=== PATIENT | male | born 1945 | race Caucasian/White ===

== ENCOUNTER 2017-01-25 16:01 | Emergency (ER) | payer OTHER ==
[~2017-01-25] VITALS: Ht 175.2 cm; Wt 81.6 kg
[~2017-01-25 16:01] MED LIST: ACETAMINOPHEN325 M2 PO; AMOXICILLIN,AM875 MG PO; ANAPROX DS550 MG PO; ANUSOL-HC25 MG R; ASPIRIN81 M1 PO; ATENOLOL25 MG PO; ATOXIMETIN-B1 CAP PO; BENZTROPINE1 MG PO; BUPROPION100 MG PO; CARDOXIN0.25 MG PO; CIPRO500 MG PO; CITALOPRAM20 MG PO; COUMADIN2.5 M1 PO; CYMBALTA30 M1 PO; Coumadin3 MG PO; DEPAKOTE DR500 MG PO; DEPAKOTE500 M1 PO; DIGOXIN0.125 MG PO; DITROPAN XL5 MG PO; EPA/GLA1 SGL PO; FLAGYL500 MG PO; FLUNISOLID0.025 MG/A NS; Fioricet 325 MG1 TAB PO; GAS RELIEF 8080 MG PO; HYDROXYYZINE PA25 MG PO; IBUPROFEN 30 M800 MG PO; LASIX20 MG PO; LEVITRA20 MG PO; LOPRESSOR25 MG; LORAZEPAM0.5 MG PO; Lopressor25 MG PO; MEDROL DOSEPAK4 MG PO; METOPROLOL SR25 MG PO; NORCO 5-325 TA1 EACH PO; OMEPRAZOLE MAGN20 MG PO; OMEPRAZOLE20 MG PO; PERPHENAZINE4 M1 PO; PERPHENAZINE4 MG PO; PHENERGAN25 M1 PO; POTASSIUM CHLO10 ME5 PO; PRAVACHOL40 MG PO; PRAZOSIN; PROTONIX20 MG PO; QUESTRAN LIGHT4 GM PO; ROBAXIN750 MG PO; TOPROL XL25 MG PO; TRAMADOL HCL50 MG PO; TRAMADOL50 MG PO; TYLENOL325 M1 PO; VANCOMYCIN250 MG/2.5 PO; VENLAFAXINE150 MG PO; VICODIN 500 MG-1 TAB PO; VITAMIN C100 MG PO; VITAMIN D1000 IU PO; WARFARIN SOD5 MG PO; XANAX0.5 MG PO; [UNRECOGNIZED DRUG - OTHER]; [UNRECOGNIZED DRUG - REMARK]
[2017-01-25 16:43] LABS: BASO % 0.3 % (0.0-1.0); EOS # 0.2 10*3/uL (0.0-0.4); EOS % 1.2 % (1.0-4.0); HEMATOCRIT 40.8 % (42.0-52.0); HEMOGLOBIN 14.3 g/dl (14.0-18.0); IG # 0.1 10*3/uL (0.0-0.1); LYMPH # 3.7 10*3/uL (1.3-4.4); LYMPH % 24.3 % (27.0-41.0); MEAN CELL VOLUME 90.5 fl (80.0-94.0); MEAN CORPUSCULAR HGB 31.7 pg (27.0-31.0); MEAN PLATELET VOLUME 10.4 fl (9.6-12.3); MONO # 1.1 10*3/uL (0.1-1.0); MONO % 7.1 % (3.0-9.0); NEUT # 10.3 10*3/uL (2.3-7.9); NEUT % 66.6 % (47.0-73.0); PLATELET COUNT AUTOMATED 295 10*3/uL (130-400); RED BLOOD COUNT 4.51 10*6/uL (4.50-5.90); RED CELL DISTRI WIDTH 12.7 % (0-14.5); WHITE BLOOD COUNT 15.4 10*3/uL (4.8-10.8)
[2017-01-25 16:58] LABS: ALBUMIN 3.6 gm/dl (3.1-4.5); ALKALINE PHOSPHATASE 74 U/L (45-117); BILIRUBIN, TOTAL 0.4 mg/dl (0.2-1.0); BUN 18 mg/dl (7-24); CARBON DIOXIDE 27 mmol/L (21-32); CHLORIDE 107 mmol/L (98-107); EST GLOM FILT AFRICAN AMERICAN > 60 ml/min; GLUCOSE 75 mg/dL (65-99); POTASSIUM 4.5 mmol/L (3.5-5.1); SGOT/AST 18 IU/L (3-35); SGPT/ALT 28 U/L (12-78); SODIUM 141 mmol/L (136-145); TOTAL PROTEIN 7.6 gm/dL (6.4-8.2)
[2017-01-25] MEDS ORDERED: DIFI200T PO (18:15)
[2017-01-25] MEDS ORDERED: TAMSULOSIN HCL0.4 MG PO (18:16)
[2017-01-25] MEDS ORDERED: PAROXETINE HCL30 MG PO (18:16)
[2017-01-25] MEDS ORDERED: PANTOPRAZOLE SO40 MG PO (18:17)
[2017-01-25] MEDS ORDERED: VANCOMYCIN125 MG/2.5 PO (18:43)
== END 2017-01-25 18:42 | disposition home or self-care (01) ==
LOC: ED 16:01
PROVIDERS: Nurse Practitioner Family
DX: R19.7 Diarrhea, unspecified (principal); F17.200 Nicotine dependence, unspecified, uncomplicated; Z98.890 Other specified postprocedural states; Z79.899 Other long term (current) drug therapy; Z79.01 Long term (current) use of anticoagulants

== ENCOUNTER → 2017-03-07 | Outpatient (CLI) | payer OTHER ==
[~2017-03-07] MED LIST changes: +DIFI200T PO; +PANTOPRAZOLE SO40 MG PO; +PAROXETINE HCL30 MG PO; +TAMSULOSIN HCL0.4 MG PO; +VANCOMYCIN125 MG/2.5 PO
== END | disposition home or self-care (01) ==
LOC: CT 00:39
DX: K57.30 Diverticulosis of large intestine without perforation or abscess without bleeding (principal); D40.0 Neoplasm of uncertain behavior of prostate; I10 Essential (primary) hypertension; N20.0 Calculus of kidney; N32.3 Diverticulum of bladder; M47.896 Other spondylosis, lumbar region; I70.0 Atherosclerosis of aorta

== ENCOUNTER 2017-04-04 17:48 | Emergency (ER) | payer OTHER ==
[~2017-04-04] VITALS: Ht 170.1 cm; Wt 81.6 kg
[2017-04-04] MEDS ORDERED: PERCOCET 325 MG1 TA2 PO (20:11)
== END 2017-04-04 20:20 | disposition home or self-care (01) ==
LOC: ED 17:48
DX: G89.29 Other chronic pain (principal); M54.5 Low back pain; F17.200 Nicotine dependence, unspecified, uncomplicated; Z79.01 Long term (current) use of anticoagulants; Z79.899 Other long term (current) drug therapy

== ENCOUNTER 2017-04-19 15:46 | Emergency (ER) | payer OTHER ==
[~2017-04-19] VITALS: Ht 175.2 cm; Wt 80.7 kg
--- NOTE | ~2017-04-19 | EKG ---
[place], [place] ELECTROCARDIOGRAM REPORT NAME: ADI CHATMAN UNIT #: [id number] ROOM: DOCTOR: DEVI JUSTICE MD BIRTHDATE: [birth year] DOS: 04/19/2017 TIME: 1631 hours. FINDINGS: 1. Atrial fibrillation with a ventricular rate of 67 beats per minute. 2. Complete right bundle branch block. 3. An abnormal ECG. 4. No previous tracing is available for comparison. DEVI JUSTICE MD CM:EKGRPT:ELECTROCARDIOGRAM REPORT [id number] DEVI JUSTICE MD
[~2017-04-19 15:46] MED LIST changes: +PERCOCET 325 MG1 TA2 PO
[2017-04-19 17:06] LABS: BASO # 0.1 10*3/uL (0.0-0.1); BASO % 0.4 % (0.0-1.0); EOS # 0.1 10*3/uL (0.0-0.4); EOS % 0.7 % (1.0-4.0); HEMATOCRIT 35.2 % (42.0-52.0); HEMOGLOBIN 12.3 g/dl (14.0-18.0); IG # 0.1 10*3/uL (0.0-0.1); LYMPH # 2.8 10*3/uL (1.3-4.4); LYMPH % 19.3 % (27.0-41.0); MEAN CELL VOLUME 91.7 fl (80.0-94.0); MEAN CORPUSCULAR HGB CONC 34.9 g/dl (33.0-37.0); MEAN PLATELET VOLUME 10.6 fl (9.6-12.3); NEUT # 10.3 10*3/uL (2.3-7.9); NEUT % 72.2 % (47.0-73.0); PLATELET COUNT AUTOMATED 316 10*3/uL (130-400); RED BLOOD COUNT 3.84 10*6/uL (4.50-5.90); RED CELL DISTRI WIDTH 12.8 % (0-14.5); WHITE BLOOD COUNT 14.2 10*3/uL (4.8-10.8)
[2017-04-19 17:22] LABS: ALBUMIN 3.2 gm/dl (3.1-4.5); ALKALINE PHOSPHATASE 73 U/L (45-117); BILIRUBIN, TOTAL 0.4 mg/dl (0.2-1.0); BUN 21 mg/dl (7-24); CARBON DIOXIDE 24 mmol/L (21-32); CHLORIDE 106 mmol/L (98-107); CPK 47 U/L (39-308); EST GLOM FILT AFRICAN AMERICAN > 60 ml/min; GLUCOSE 95 mg/dL (65-99); LDH 146 U/L (87-241); POTASSIUM 4.1 mmol/L (3.5-5.1); SGOT/AST 15 IU/L (3-35); SGPT/ALT 25 U/L (12-78); SODIUM 138 mmol/L (136-145); TOTAL PROTEIN 7.3 gm/dL (6.4-8.2)
[2017-04-19 17:26] LABS: CKMB < 0.5 ng/ml (0.5-3.6); TROPONIN I < 0.015 ng/ml (<0.045)
[2017-04-19 19:23] LABS: BILIRUBIN NEGATIVE (NEGATIVE); BLOOD NEGATIVE (NEGATIVE); CLARITY CLEAR (CLEAR); COLOR YELLOW (YELLOW); GLUCOSE NEGATIVE (NEGATIVE); KETONE TRACE (NEGATIVE); LEUKO ESTERASE NEGATIVE (NEGATIVE); NITRITE NEGATIVE (NEGATIVE); PH 5.5 (5.0-9.0); PROTEIN NEGATIVE (NEGATIVE); UROBILINOGEN 0.2 E.U./dl (0.2-1.0)
[2017-04-19 19:30] LABS: BACTERIA 1+; EPITHELIAL CELLS 0-2; MUCOUS 2+; RBC 0-2 rbc/hpf (0-2); URINE REFLEX COMMENT NO (NO)
[2017-04-19] MEDS ORDERED: FLAGYL500 MG PO (20:16)
[2017-04-19] MEDS ORDERED: PERCOCET 325 MG1 TA2 PO (20:16)
[2017-04-19] MEDS ORDERED: CIPRO500 MG PO (20:16)
== END 2017-04-19 21:51 | disposition home or self-care (01) ==
LOC: ED 15:46
PROVIDERS: Physician Assistant
DX: K57.92 Diverticulitis of intestine, part unspecified, without perforation or abscess without bleeding (principal); F17.200 Nicotine dependence, unspecified, uncomplicated; Z79.01 Long term (current) use of anticoagulants

== ENCOUNTER 2017-05-02 16:01 | Inpatient (IN) | payer OTHER ==
[~2017-05-02] VITALS: Ht 170.1 cm; Wt 82.0 kg
[2017-05-02 16:18] VITALS: BP 123/69
[2017-05-02 16:19] VITALS: BP 105/69; BP 123/69
[2017-05-02 16:33] LABS: BASO # 0.1 10*3/uL (0.0-0.1); BASO % 0.6 % (0.0-1.0); EOS # 0.1 10*3/uL (0.0-0.4); EOS % 1.1 % (1.0-4.0); HEMATOCRIT 43.2 % (42.0-52.0); HEMOGLOBIN 14.8 g/dl (14.0-18.0); LYMPH # 2.6 10*3/uL (1.3-4.4); LYMPH % 23.6 % (27.0-41.0); MEAN CELL VOLUME 92.5 fl (80.0-94.0); MEAN CORPUSCULAR HGB 31.7 pg (27.0-31.0); MEAN CORPUSCULAR HGB CONC 34.3 g/dl (33.0-37.0); MEAN PLATELET VOLUME 10.3 fl (9.6-12.3); MONO # 0.7 10*3/uL (0.1-1.0); MONO % 6.2 % (3.0-9.0); NEUT # 7.4 10*3/uL (2.3-7.9); NEUT % 68.1 % (47.0-73.0); PLATELET COUNT AUTOMATED 357 10*3/uL (130-400); RED BLOOD COUNT 4.67 10*6/uL (4.50-5.90); RED CELL DISTRI WIDTH 12.8 % (0-14.5); WHITE BLOOD COUNT 10.8 10*3/uL (4.8-10.8)
[2017-05-02 16:44] LABS: INTERNATIONAL NORM RATIO 3.3 (2.0-3.5); PROTHROMBIN TIME 37.7 SECONDS (9.0-12.4)
[2017-05-02 16:49] LABS: ALBUMIN 3.4 gm/dl (3.1-4.5); ALKALINE PHOSPHATASE 64 U/L (45-117); BILIRUBIN, TOTAL 0.3 mg/dl (0.2-1.0); BUN 17 mg/dl (7-24); CARBON DIOXIDE 24 mmol/L (21-32); CHLORIDE 106 mmol/L (98-107); CKMB 0.7 ng/ml (0.5-3.6); CPK 63 U/L (39-308); EST GLOM FILT AFRICAN AMERICAN > 60 ml/min; GLUCOSE 90 mg/dL (65-99); MAGNESIUM 2.2 mg/dL (1.5-2.1); POTASSIUM 4.9 mmol/L (3.5-5.1); SGOT/AST 20 IU/L (3-35); SGPT/ALT 30 U/L (12-78); SODIUM 138 mmol/L (136-145)
[2017-05-02 16:50] LABS: C-REACTIVE PROTEIN < 0.29 MG/DL (0-0.3); TROPONIN I < 0.015 ng/ml (<0.045)
[2017-05-02 16:58] LABS: BILIRUBIN NEGATIVE (NEGATIVE); BLOOD TRACE-INTACT (NEGATIVE); CLARITY SL CLOUDY (CLEAR); COLOR YELLOW (YELLOW); GLUCOSE NEGATIVE (NEGATIVE); KETONE NEGATIVE (NEGATIVE); LEUKO ESTERASE NEGATIVE (NEGATIVE); NITRITE NEGATIVE (NEGATIVE); PROTEIN NEGATIVE (NEGATIVE); UROBILINOGEN 0.2 E.U./dl (0.2-1.0)
[2017-05-02 17:08] LABS: BACTERIA 1+; EPITHELIAL CELLS 0-2; MUCOUS TRACE; URINE REFLEX COMMENT NO (NO); WBC 0-2 wbc/hpf (0-5)
[2017-05-02 17:15] VITALS: BP 104/66
[2017-05-02 17:41] VITALS: BP 117/71
[2017-05-02 18:30] VITALS: BP 127/68
== END 2017-05-02 19:54 | disposition left against medical advice (07) | DRG 312 ==
LOC: ED 16:01 → EDHOLD 17:19 → 5E 17:51
PROVIDERS: Emergency Medicine
DX: I95.1 Orthostatic hypotension (principal); N17.0 Acute kidney failure with tubular necrosis; I48.2 Chronic atrial fibrillation; E86.0 Dehydration; F32.9 Major depressive disorder, single episode, unspecified; E83.41 Hypermagnesemia; I10 Essential (primary) hypertension; F43.10 Post-traumatic stress disorder, unspecified; E78.2 Mixed hyperlipidemia; G89.29 Other chronic pain; N40.0 Benign prostatic hyperplasia without lower urinary tract symptoms; H91.93 Unspecified hearing loss, bilateral; F17.210 Nicotine dependence, cigarettes, uncomplicated; K21.9 Gastro-esophageal reflux disease without esophagitis; Z87.81 Personal history of (healed) traumatic fracture; Z71.6 Tobacco abuse counseling; Z82.49 Family history of ischemic heart disease and other diseases of the circulatory system; Z80.8 Family history of malignant neoplasm of other organs or systems; Z79.01 Long term (current) use of anticoagulants; Z79.899 Other long term (current) drug therapy

== ENCOUNTER 2017-05-09 14:46 | Emergency (ER) | payer OTHER ==
[~2017-05-09] VITALS: Ht 170.1 cm; Wt 78.9 kg
[2017-05-09 16:02] LABS: BASO # 0.1 10*3/uL (0.0-0.1); BASO % 0.4 % (0.0-1.0); EOS # 0.1 10*3/uL (0.0-0.4); EOS % 0.9 % (1.0-4.0); HEMATOCRIT 39.9 % (42.0-52.0); HEMOGLOBIN 13.6 g/dl (14.0-18.0); LYMPH # 2.2 10*3/uL (1.3-4.4); LYMPH % 15.3 % (27.0-41.0); MEAN CELL VOLUME 92.8 fl (80.0-94.0); MEAN CORPUSCULAR HGB 31.6 pg (27.0-31.0); MEAN CORPUSCULAR HGB CONC 34.1 g/dl (33.0-37.0); MEAN PLATELET VOLUME 10.7 fl (9.6-12.3); MONO # 1.2 10*3/uL (0.1-1.0); MONO % 8.7 % (3.0-9.0); NEUT # 10.5 10*3/uL (2.3-7.9); NEUT % 74.2 % (47.0-73.0); PLATELET COUNT AUTOMATED 307 10*3/uL (130-400); WHITE BLOOD COUNT 14.2 10*3/uL (4.8-10.8)
[2017-05-09 16:17] LABS: ALBUMIN 3.3 gm/dl (3.1-4.5); ALKALINE PHOSPHATASE 65 U/L (45-117); BUN 19 mg/dl (7-24); CHLORIDE 105 mmol/L (98-107); CREATININE 1.34 mg/dL (0.70-1.30); LIPASE 333 U/L (73-393); POTASSIUM 3.4 mmol/L (3.5-5.1); SGOT/AST 15 IU/L (3-35); SGPT/ALT 25 U/L (12-78); SODIUM 140 mmol/L (136-145); TOTAL PROTEIN 7.8 gm/dL (6.4-8.2)
[2017-05-09] MEDS ORDERED: VANCOMYCIN HCL125 MG PO (16:53)
[2017-05-09] MEDS ORDERED: FLORASTOR250 MG PO (16:53)
== END 2017-05-09 18:10 | disposition home or self-care (01) ==
LOC: ED 14:46
PROVIDERS: Emergency Medicine
DX: A04.7 Enterocolitis due to Clostridium difficile (principal); I48.91 Unspecified atrial fibrillation; I10 Essential (primary) hypertension; K21.9 Gastro-esophageal reflux disease without esophagitis; E78.5 Hyperlipidemia, unspecified; Z87.442 Personal history of urinary calculi; Z79.02 Long term (current) use of antithrombotics/antiplatelets; Z79.899 Other long term (current) drug therapy; F17.200 Nicotine dependence, unspecified, uncomplicated

== ENCOUNTER 2017-05-10 20:39 | Emergency (ER) | payer OTHER ==
[~2017-05-10] VITALS: Ht 177.8 cm; Wt 99.8 kg
[~2017-05-10 20:39] MED LIST changes: +FLORASTOR250 MG PO; +VANCOMYCIN HCL125 MG PO
[2017-05-10 21:28] LABS: HEMATOCRIT 37.2 % (42.0-52.0); HEMOGLOBIN 12.7 g/dl (14.0-18.0); MEAN CELL VOLUME 91.6 fl (80.0-94.0); MEAN CORPUSCULAR HGB 31.3 pg (27.0-31.0); MEAN CORPUSCULAR HGB CONC 34.1 g/dl (33.0-37.0); MEAN PLATELET VOLUME 10.5 fl (9.6-12.3); PLATELET COUNT AUTOMATED 275 10*3/uL (130-400); RED BLOOD COUNT 4.06 10*6/uL (4.50-5.90); RED CELL DISTRI WIDTH 12.9 % (0-14.5); WHITE BLOOD COUNT 15.6 10*3/uL (4.8-10.8)
[2017-05-10 21:43] LABS: ALBUMIN 3.2 gm/dl (3.1-4.5); ALKALINE PHOSPHATASE 65 U/L (45-117); BUN 17 mg/dl (7-24); CHLORIDE 103 mmol/L (98-107); CREATININE 1.39 mg/dL (0.70-1.30); LIPASE 199 U/L (73-393); POTASSIUM 3.3 mmol/L (3.5-5.1); SGOT/AST 13 IU/L (3-35); SGPT/ALT 21 U/L (12-78); SODIUM 137 mmol/L (136-145); TOTAL PROTEIN 7.5 gm/dL (6.4-8.2)
[2017-05-10 22:03] LABS: PLATELET SUFFICIENCY NORMAL (NORMAL); TOTAL CELLS COUNTED 100 #CELLS
== END 2017-05-11 00:37 | disposition short-term general hospital (02) ==
LOC: ED 20:39
PROVIDERS: Physician Assistant
DX: A04.7 Enterocolitis due to Clostridium difficile (principal); D72.829 Elevated white blood cell count, unspecified; F17.200 Nicotine dependence, unspecified, uncomplicated; Z79.899 Other long term (current) drug therapy; Z79.02 Long term (current) use of antithrombotics/antiplatelets

== ENCOUNTER 2017-05-28 18:03 | Inpatient (IN) | payer OTHER ==
[~2017-05-28] VITALS: Ht 170.1 cm; Wt 78.6 kg
[2017-05-28 18:07] VITALS: BP 116/73
--- NOTE | 2017-05-28 18:15 | NUR ---
PT TAKES VANCOMYCIN PER HIS STMT FOR CURRENT C.DIFF INFECTION. ADMITS THAT HIS DIARRHEA HAS RESOLVED BUT THAT HE CONTINUES TO HAVE DIFFISE ABDOMEN PAIN, BACK PAIN, GENERAL WEAKNESS AND PERIODS OF DIZZINESS. HIS VITALS ARE IN NORMAL LIMITS. HE IS AFEBRILE. HIS ORAL MUCOSA IS MOIST BUT SKIN TURGOR SHOWS TENTING. DENIES ORTHOSTATIS BUT WILL PERFORM THIS EXAM SHORTLY.
[2017-05-28 18:55] LABS: BASO # 0.1 10*3/uL (0.0-0.1); BASO % 0.9 % (0.0-1.0); EOS # 0.2 10*3/uL (0.0-0.4); EOS % 2.4 % (1.0-4.0); HEMATOCRIT 39.4 % (42.0-52.0); HEMOGLOBIN 13.4 g/dl (14.0-18.0); LYMPH # 2.7 10*3/uL (1.3-4.4); LYMPH % 38.4 % (27.0-41.0); MEAN CELL VOLUME 92.1 fl (80.0-94.0); MEAN CORPUSCULAR HGB 31.3 pg (27.0-31.0); MEAN PLATELET VOLUME 10.9 fl (9.6-12.3); MONO # 0.7 10*3/uL (0.1-1.0); MONO % 10.1 % (3.0-9.0); NEUT # 3.3 10*3/uL (2.3-7.9); NEUT % 47.8 % (47.0-73.0); PLATELET COUNT AUTOMATED 379 10*3/uL (130-400); RED BLOOD COUNT 4.28 10*6/uL (4.50-5.90)
[2017-05-28 19:05] LABS: ACT PARTIAL THROMBO TIME 34.5 SECONDS (20.8-31.5); INTERNATIONAL NORM RATIO 2.6 (2.0-3.5)
--- NOTE | 2017-05-28 19:07 | NUR ---
REPORT FROM SAUL BERRIOS.. .PT RETURNS FROM RAD DEPT. NO DISTRESS NOTED.
[2017-05-28 19:11] LABS: ALBUMIN 3.4 gm/dl (3.1-4.5); ALKALINE PHOSPHATASE 73 U/L (45-117); BUN 24 mg/dl (7-24); CHLORIDE 104 mmol/L (98-107); CPK 36 U/L (39-308); CREATININE 1.37 mg/dL (0.70-1.30); LIPASE 274 U/L (73-393); MAGNESIUM 2.2 mg/dL (1.5-2.1); POTASSIUM 4.7 mmol/L (3.5-5.1); SGOT/AST 21 IU/L (3-35); SGPT/ALT 26 U/L (12-78); SODIUM 138 mmol/L (136-145); TOTAL PROTEIN 7.6 gm/dL (6.4-8.2)
[2017-05-28 19:16] LABS: CKMB < 0.5 ng/ml (0.5-3.6); TROPONIN I < 0.015 ng/ml (<0.045)
[2017-05-28 19:22] LABS: DIGOXIN 0.68 ng/ml (0.8-2.0)
[2017-05-28 19:30] VITALS: BP 130/73
[2017-05-28 19:37] LABS: BILIRUBIN NEGATIVE (NEGATIVE); BLOOD NEGATIVE (NEGATIVE); CLARITY CLEAR (CLEAR); COLOR YELLOW (YELLOW); GLUCOSE NEGATIVE (NEGATIVE); KETONE NEGATIVE (NEGATIVE); LEUKO ESTERASE NEGATIVE (NEGATIVE); NITRITE NEGATIVE (NEGATIVE); PH 5.5 (5.0-9.0); SPECIFIC GRAVITY 1.025 (1.005-1.030); UROBILINOGEN 0.2 E.U./dl (0.2-1.0)
[2017-05-28 20:04] LABS: BACTERIA 1+; MUCOUS 2+
[2017-05-28 20:17] VITALS: BP 128/70
--- NOTE | 2017-05-28 20:17 | NUR ---
PT MEDICATED PER EMAR FOR PAIN. NO DISTRESS NOTED, WILL CONT TO MONITOR.
[2017-05-28 21:24] VITALS: BP 135/73
--- NOTE | 2017-05-28 21:33 | NUR ---
REPORT FROM AMANDA WATTS RN
[2017-05-28 22:00] VITALS: BP 152/69
--- NOTE | 2017-05-28 22:00 | NUR ---
A 71, admitted to , under the services of GEMNII Martinez DO with a diagnosis of NEAR SYNCOPE. Chief complaint is WEAKNESS AND DIZZINESS. Patient arrived via stretcher from ER. Monitor applied. Initial assessment completed. Vital signs taken and recorded. GEMINI MARTINEZ DO notified of admission to the unit. Orders received. See assessment for past medical history, medications and allergies. Patient and/or family oriented to unit. [facility] visitation policy reviewed. Clothing/patient valuable form completed. CROW GLASS
--- NOTE | 2017-05-28 22:34 | NUR ---
patient unsure of all medication except digoxin and coumadin. no list available. pharmacy closed at this time and medications not in claims history
--- NOTE | 2017-05-28 23:06 | NUR ---
DR DIETRICH AWARE OF PATIENT'S MED REC NOT COMPLETE
--- NOTE | 2017-05-28 23:55 | NUR ---
PATIENT MEDICATED WITH PRN NORCO FOR C/O BACK PAIN AND HEADACHE
--- NOTE | 2017-05-29 02:14 | NUR ---
PATIENT RESTING WITH EYES CLOSED. MEDICATION SEEMS EFFECTIVE
[2017-05-29 03:32] LABS: BASO # 0.1 10*3/uL (0.0-0.1); BASO % 1.2 % (0.0-1.0); EOS # 0.2 10*3/uL (0.0-0.4); EOS % 3.1 % (1.0-4.0); HEMATOCRIT 38.6 % (42.0-52.0); HEMOGLOBIN 13.2 g/dl (14.0-18.0); LYMPH # 2.7 10*3/uL (1.3-4.4); LYMPH % 45.6 % (27.0-41.0); MEAN CELL VOLUME 94.4 fl (80.0-94.0); MEAN CORPUSCULAR HGB 32.3 pg (27.0-31.0); MEAN CORPUSCULAR HGB CONC 34.2 g/dl (33.0-37.0); MEAN PLATELET VOLUME 10.6 fl (9.6-12.3); MONO # 0.6 10*3/uL (0.1-1.0); MONO % 9.6 % (3.0-9.0); NEUT # 2.3 10*3/uL (2.3-7.9); PLATELET COUNT AUTOMATED 301 10*3/uL (130-400); RED BLOOD COUNT 4.09 10*6/uL (4.50-5.90); RED CELL DISTRI WIDTH 12.9 % (0-14.5); WHITE BLOOD COUNT 5.8 10*3/uL (4.8-10.8)
[2017-05-29 03:52] LABS: ALBUMIN 3.2 gm/dl (3.1-4.5); ALKALINE PHOSPHATASE 68 U/L (45-117); BUN 18 mg/dl (7-24); CHLORIDE 109 mmol/L (98-107); CHOLESTEROL 189 mg/dL (<200); CREATININE 1.01 mg/dL (0.70-1.30); HDL CHOLESTEROL 36 mg/dl (40-60); LDL CHOLESTEROL 106 mg/dL (9-159); MAGNESIUM 2.2 mg/dL (1.5-2.1); PHOSPHOROUS 2.6 mg/dL (2.5-4.9); SGOT/AST 21 IU/L (3-35); SGPT/ALT 24 U/L (12-78); SODIUM 142 mmol/L (136-145); TOTAL PROTEIN 7.1 gm/dL (6.4-8.2); TRIGLYCERIDES 235 mg/dl (<150); VLDL CHOLESTEROL 47 mg/dL (6-40)
[2017-05-29 04:00] VITALS: BP 160/87
[2017-05-29 04:02] LABS: ACT PARTIAL THROMBO TIME 33.6 SECONDS (20.8-31.5); INTERNATIONAL NORM RATIO 2.4 (2.0-3.5); VITAMIN D, 25-HYDROXY 48.2 ng/mL (30-100)
--- NOTE | 2017-05-29 04:05 | NUR ---
DR DIETRICH NOTIFIED OF PATIENT'S HR DROPPING INTO THE 30'S AND LONG PAUSES. STATES NOT TO WORRY ABOUT IT RIGHT NOW AND IF IT STAYS CONSISTANT THEN HE WILL CONSULT CARDIOLOGY. WILL CONTINUE TO MONITOR
[2017-05-29 08:00] VITALS: BP 145/75
--- NOTE | 2017-05-29 09:00 | NUR ---
Pot Tender in to talk to patient. Patient states lives at home with . There are few steps in the home. Physician: laurie [facility]: [facility] Home health services: none Patient's level of ADLs: MINIMAL ASSIST Patient has working utilities: all working DME: cane Follow-up physician's appointment after d/c: will be made by hospitalist nurse director upon discharge Does patient want to access PORTAL?: no Discharge plan discussed with patient, patient lives at home with , states he gets around with a cane, independent in adls, drives, patient states he will be going back home when able and denies any home needs, also discussed with him if he wanted va billed or his anthem, he wants va billed and states he is ok to transfer to [facility] if needed. WILLIAM ANN
--- NOTE | 2017-05-29 11:49 | NUR ---
case management received a call from Meredith social work case manager at [facility], she requested patient's information be faxed to her, patient's information faxed
[2017-05-29 12:00] VITALS: BP 123/58
--- NOTE | 2017-05-29 12:20 | NUR ---
PHYSICAL THERAPY APtient requests no PT this date until after special testing this date copleted. Will attempt PT later this date or at a later date. Thank you for this referral. Radha Vieira,PT
--- NOTE | 2017-05-29 13:32 | NUR ---
MULTIPLE ATTEMPTS TO CONTACT TO VERIFY MEDICATIONS, PT IS A [facility].
--- NOTE | 2017-05-29 13:50 | NUR ---
NORCO GIVEN FOR C/O NECK PAIN. WILL MONITOR
--- NOTE | 2017-05-29 15:16 | NUR ---
HERE TP VISIT, SHE DID NOT BRING MED LIST WITH HER, SHE WILL CALL WHEN SHE GETS HOME TO VERIFY MEDICATIONS
[2017-05-29 16:00] VITALS: BP 168/70
[2017-05-29] MEDS ORDERED: COUMADIN3 M1 PO (16:24)
--- NOTE | 2017-05-29 19:43 | NUR ---
PATIENT RESTING IN BED WITH NO NEEDS MADE. C/O HEADACHE. WILL MONITOR. BED IN LOWEST POSITION, CALL LIGHT IN REACH
[2017-05-29 20:00] VITALS: BP 143/77
--- NOTE | 2017-05-29 21:24 | NUR ---
DR DIETRICH NOTIFIED OF HEART RATE IN THE LOW 50'S. OK TO HOLD LOPRESSOR
--- NOTE | 2017-05-29 22:01 | NUR ---
PATIENT MEDICATED WITH PRN NORCO FOR HEAD AND NECK PAIN RATED 7/10 ON A 0/10 PAIN SCALE
[2017-05-30] VITALS: BP 159/80
--- NOTE | 2017-05-30 02:17 | NUR ---
PATIENT RESTING IN BED WITH NO S/S OF DISTRESS. BED IN LOWEST POSITOIN, CALL LIGHT IN REACH
[2017-05-30 06:48] LABS: BASO # 0.1 10*3/uL (0.0-0.1); EOS # 0.2 10*3/uL (0.0-0.4); EOS % 3.9 % (1.0-4.0); HEMATOCRIT 37.8 % (42.0-52.0); HEMOGLOBIN 13.1 g/dl (14.0-18.0); LYMPH # 2.7 10*3/uL (1.3-4.4); LYMPH % 45.2 % (27.0-41.0); MEAN CELL VOLUME 93.3 fl (80.0-94.0); MEAN CORPUSCULAR HGB 32.3 pg (27.0-31.0); MEAN CORPUSCULAR HGB CONC 34.7 g/dl (33.0-37.0); MEAN PLATELET VOLUME 11.1 fl (9.6-12.3); MONO # 0.6 10*3/uL (0.1-1.0); MONO % 10.3 % (3.0-9.0); NEUT # 2.3 10*3/uL (2.3-7.9); NEUT % 39.3 % (47.0-73.0); PLATELET COUNT AUTOMATED 297 10*3/uL (130-400); RED BLOOD COUNT 4.05 10*6/uL (4.50-5.90); RED CELL DISTRI WIDTH 12.9 % (0-14.5)
[2017-05-30 07:05] LABS: BUN 12 mg/dl (7-24); CHLORIDE 108 mmol/L (98-107); CREATININE 1.04 mg/dL (0.70-1.30); POTASSIUM 4.6 mmol/L (3.5-5.1); SODIUM 141 mmol/L (136-145)
[2017-05-30 07:06] LABS: INTERNATIONAL NORM RATIO 2.1 (2.0-3.5)
[2017-05-30 08:00] VITALS: BP 162/86
--- NOTE | 2017-05-30 09:24 | NUR ---
PRN PAIN MED GIVEN FOR 6/10 HEADACHE AND BACK ACHE.
--- NOTE | 2017-05-30 10:24 | NUR ---
PRN PAIN MED EFFECTIVE, PT REPORTS PAIN 3/10 HEADACHE AND BACK.
--- NOTE | 2017-05-30 10:42 | NUR ---
PHYSICAL THERAPY PAtient with significant headache, nurse aware. Unable to participate in PT at this time. Radha Vieira,PT
--- NOTE | 2017-05-30 10:51 | NUR ---
case management visits with patient, patient denies any home needs at this time
[2017-05-30 12:00] VITALS: BP 123/72
[2017-05-30] MEDS ORDERED: PERCOCET 7.5-31 EACH PO (12:49)
--- NOTE | 2017-05-30 13:29 | NUR ---
PHYSICAL THERAPY Patient being d/c. Radha Vieira,PT
--- NOTE | 2017-05-30 14:43 | NUR ---
Discharge instructions reviewed with patient/family. Patient receptive and verbalizes understanding. Follow-up care arranged. Written instructions given to patient/family. TORIE THAKKAR
== END 2017-05-30 14:43 | disposition home or self-care (01) | DRG 683 ==
LOC: ED 18:03 → EDHOLD 20:57 → 4E 20:57
PROVIDERS: Emergency Medicine; Family Medicine; Hospitalist; ADMIT Internal Medicine
DX: N17.0 Acute kidney failure with tubular necrosis (principal); D68.59 Other primary thrombophilia; A04.7 Enterocolitis due to Clostridium difficile; G91.2 (Idiopathic) normal pressure hydrocephalus; F33.9 Major depressive disorder, recurrent, unspecified; I95.1 Orthostatic hypotension; M51.9 Unspecified thoracic, thoracolumbar and lumbosacral intervertebral disc disorder; E78.5 Hyperlipidemia, unspecified; I48.0 Paroxysmal atrial fibrillation; F17.210 Nicotine dependence, cigarettes, uncomplicated; F43.10 Post-traumatic stress disorder, unspecified; K57.30 Diverticulosis of large intestine without perforation or abscess without bleeding; H91.8X9 Other specified hearing loss, unspecified ear; D64.9 Anemia, unspecified; G89.29 Other chronic pain; N32.81 Overactive bladder; K21.9 Gastro-esophageal reflux disease without esophagitis; I10 Essential (primary) hypertension; N40.0 Benign prostatic hyperplasia without lower urinary tract symptoms; Z82.49 Family history of ischemic heart disease and other diseases of the circulatory system; Z79.899 Other long term (current) drug therapy; Z79.01 Long term (current) use of anticoagulants

== ENCOUNTER → 2017-08-08 | Outpatient (CLI) | payer OTHER ==
[~2017-08-08] MED LIST changes: +COUMADIN3 M1 PO; +PERCOCET 7.5-31 EACH PO
== END | disposition home or self-care (01) ==
LOC: LAB 09:00
DX: S83.242D Other tear of medial meniscus, current injury, left knee, subsequent encounter (principal); M71.22 Synovial cyst of popliteal space [Baker], left knee; M94.262 Chondromalacia, left knee; X58.XXXD Exposure to other specified factors, subsequent encounter

== ENCOUNTER 2017-08-14 15:07 | Emergency (ER) | payer OTHER ==
[~2017-08-14] VITALS: Ht 170.1 cm; Wt 79.4 kg
[2017-08-14 16:07] LABS: BASO % 0.5 % (0.0-1.0); EOS # 0.1 10*3/uL (0.0-0.4); EOS % 1.4 % (1.0-4.0); HEMATOCRIT 39.7 % (42.0-52.0); HEMOGLOBIN 13.9 g/dl (14.0-18.0); LYMPH # 2.3 10*3/uL (1.3-4.4); LYMPH % 29.4 % (27.0-41.0); MEAN CELL VOLUME 89.2 fl (80.0-94.0); MEAN CORPUSCULAR HGB 31.2 pg (27.0-31.0); MEAN PLATELET VOLUME 10.3 fl (9.6-12.3); MONO # 0.7 10*3/uL (0.1-1.0); MONO % 8.8 % (3.0-9.0); NEUT # 4.6 10*3/uL (2.3-7.9); NEUT % 59.5 % (47.0-73.0); PLATELET COUNT AUTOMATED 298 10*3/uL (130-400); RED BLOOD COUNT 4.45 10*6/uL (4.50-5.90); RED CELL DISTRI WIDTH 12.9 % (0-14.5); WHITE BLOOD COUNT 7.7 10*3/uL (4.8-10.8)
[2017-08-14 16:14] LABS: INTERNATIONAL NORM RATIO 1.9 (2.0-3.5)
[2017-08-14 16:21] LABS: ALBUMIN 3.7 gm/dl (3.1-4.5); ALKALINE PHOSPHATASE 76 U/L (45-117); BUN 17 mg/dl (7-24); CHLORIDE 105 mmol/L (98-107); CREATININE 1.37 mg/dL (0.70-1.30); LIPASE 283 U/L (73-393); POTASSIUM 4.2 mmol/L (3.5-5.1); SGOT/AST 21 IU/L (3-35); SGPT/ALT 35 U/L (12-78); SODIUM 138 mmol/L (136-145); TOTAL PROTEIN 8.1 gm/dL (6.4-8.2)
[2017-08-14 16:57] LABS: BILIRUBIN NEGATIVE (NEGATIVE); BLOOD NEGATIVE (NEGATIVE); CLARITY CLEAR (CLEAR); COLOR YELLOW (YELLOW); GLUCOSE NEGATIVE (NEGATIVE); KETONE NEGATIVE (NEGATIVE); LEUKO ESTERASE NEGATIVE (NEGATIVE); NITRITE NEGATIVE (NEGATIVE); PH 5.5 (5.0-9.0); SPECIFIC GRAVITY 1.025 (1.005-1.030); UROBILINOGEN 0.2 E.U./dl (0.2-1.0)
[2017-08-14 17:05] LABS: WBC 0-2 wbc/hpf (0-5)
== END 2017-08-14 17:41 | disposition home or self-care (01) ==
LOC: ED 15:07
PROVIDERS: Physician Assistant
DX: R10.30 Lower abdominal pain, unspecified (principal); F17.210 Nicotine dependence, cigarettes, uncomplicated; R53.1 Weakness; R11.0 Nausea; Z79.899 Other long term (current) drug therapy; Z79.01 Long term (current) use of anticoagulants

== ENCOUNTER 2017-09-22 15:54 | Emergency (ER) | payer BC, OTHER ==
[~2017-09-22] VITALS: Ht 170.1 cm; Wt 79.4 kg
[2017-09-22 16:52] LABS: BASO # 0.1 10*3/uL (0.0-0.1); BASO % 0.6 % (0.0-1.0); EOS # 0.1 10*3/uL (0.0-0.4); EOS % 1.5 % (1.0-4.0); HEMATOCRIT 39.9 % (42.0-52.0); HEMOGLOBIN 14.2 g/dl (14.0-18.0); LYMPH # 2.6 10*3/uL (1.3-4.4); LYMPH % 29.1 % (27.0-41.0); MEAN CELL VOLUME 89.5 fl (80.0-94.0); MEAN CORPUSCULAR HGB 31.8 pg (27.0-31.0); MEAN CORPUSCULAR HGB CONC 35.6 g/dl (33.0-37.0); MEAN PLATELET VOLUME 10.9 fl (9.6-12.3); MONO # 0.7 10*3/uL (0.1-1.0); MONO % 7.5 % (3.0-9.0); NEUT # 5.4 10*3/uL (2.3-7.9); PLATELET COUNT AUTOMATED 295 10*3/uL (130-400); RED BLOOD COUNT 4.46 10*6/uL (4.50-5.90); RED CELL DISTRI WIDTH 12.6 % (0-14.5); WHITE BLOOD COUNT 8.8 10*3/uL (4.8-10.8)
[2017-09-22 17:02] LABS: ACT PARTIAL THROMBO TIME 32.2 SECONDS (20.8-31.5); INTERNATIONAL NORM RATIO 2.3 (2.0-3.5)
[2017-09-22 17:08] LABS: ALBUMIN 3.6 gm/dl (3.1-4.5); CREATININE 1.49 mg/dL (0.70-1.30); POTASSIUM 4.5 mmol/L (3.5-5.1); TOTAL PROTEIN 7.6 gm/dL (6.4-8.2)
[2017-09-22 18:09] LABS: BILIRUBIN NEGATIVE (NEGATIVE); BLOOD NEGATIVE (NEGATIVE); CLARITY CLEAR (CLEAR); COLOR YELLOW (YELLOW); GLUCOSE NEGATIVE (NEGATIVE); KETONE NEGATIVE (NEGATIVE); LEUKO ESTERASE NEGATIVE (NEGATIVE); NITRITE NEGATIVE (NEGATIVE); PH 5.5 (5.0-9.0); UROBILINOGEN 0.2 E.U./dl (0.2-1.0)
[2017-09-22 18:20] LABS: BACTERIA 1+; EPITHELIAL CELLS 0-2; RBC 0-2 rbc/hpf (0-2)
[2017-09-22 18:21] LABS: MUCOUS TRACE
[2017-09-22] MEDS ORDERED: ZOFRAN4 MG PO (18:28)
== END 2017-09-22 18:38 | disposition home or self-care (01) ==
LOC: ED 15:54
PROVIDERS: Nurse Practitioner Family
DX: R10.84 Generalized abdominal pain (principal); R11.0 Nausea; R03.0 Elevated blood-pressure reading, without diagnosis of hypertension; K59.00 Constipation, unspecified; Z79.899 Other long term (current) drug therapy; F17.200 Nicotine dependence, unspecified, uncomplicated

== ENCOUNTER 2017-11-11 15:59 | Emergency (ER) | payer MEDICARE, BC ==
[~2017-11-11] VITALS: Ht 170.1 cm; Wt 79.4 kg
[~2017-11-11 15:59] MED LIST changes: +ZOFRAN4 MG PO
[2017-11-11 16:37] LABS: BASO # 0.1 10*3/uL (0.0-0.1); BASO % 0.6 % (0.0-1.0); EOS # 0.1 10*3/uL (0.0-0.4); EOS % 1.5 % (1.0-4.0); HEMATOCRIT 39.8 % (42.0-52.0); HEMOGLOBIN 14.4 g/dl (14.0-18.0); MEAN CELL VOLUME 88.8 fl (80.0-94.0); MEAN CORPUSCULAR HGB 32.1 pg (27.0-31.0); MEAN CORPUSCULAR HGB CONC 36.2 g/dl (33.0-37.0); MEAN PLATELET VOLUME 10.6 fl (9.6-12.3); MONO # 0.7 10*3/uL (0.1-1.0); NEUT # 5.3 10*3/uL (2.3-7.9); NEUT % 57.6 % (47.0-73.0); PLATELET COUNT AUTOMATED 267 10*3/uL (130-400); RED BLOOD COUNT 4.48 10*6/uL (4.50-5.90); RED CELL DISTRI WIDTH 11.8 % (0-14.5); WHITE BLOOD COUNT 9.2 10*3/uL (4.8-10.8)
[2017-11-11 16:46] LABS: ACT PARTIAL THROMBO TIME 29.4 SECONDS (20.8-31.5); INTERNATIONAL NORM RATIO 1.6 (2.0-3.5)
[2017-11-11 16:55] LABS: ALBUMIN 3.2 gm/dl (3.1-4.5); ALKALINE PHOSPHATASE 84 U/L (45-117); BUN 16 mg/dl (7-24); CHLORIDE 106 mmol/L (98-107); CREATININE 1.14 mg/dL (0.70-1.30); LIPASE 225 U/L (73-393); POTASSIUM 4.1 mmol/L (3.5-5.1); SGOT/AST 29 IU/L (3-35); SODIUM 139 mmol/L (136-145); TOTAL PROTEIN 7.4 gm/dL (6.4-8.2)
[2017-11-11] MEDS ORDERED: SERTRALINE HYDR25 MG PO (16:56)
[2017-11-11] MEDS ORDERED: TAMSULOSIN HCL0.4 MG PO (16:56)
[2017-11-11] MEDS ORDERED: LYRICA50 M1 PO (16:57)
[2017-11-11] MEDS ORDERED: LATANOPROST2.5 ML OP (16:57)
[2017-11-11] MEDS ORDERED: TRAMADOL HCL50 MG PO (16:58)
[2017-11-11] MEDS ORDERED: BUSPAR5 MG PO (16:58)
[2017-11-11 16:59] LABS: TROPONIN I < 0.015 ng/ml (<0.045)
[2017-11-11] MEDS ORDERED: COMPLETE SENIO1 EACH PO (16:59)
[2017-11-11] MEDS ORDERED: TYLENOL325 M2 PO (16:59)
[2017-11-11] MEDS ORDERED: VITAMIN D33000 UNIT PO (17:00)
[2017-11-11 17:49] LABS: BILIRUBIN NEGATIVE (NEGATIVE); BLOOD NEGATIVE (NEGATIVE); CLARITY CLEAR (CLEAR); COLOR YELLOW (YELLOW); GLUCOSE NEGATIVE (NEGATIVE); KETONE NEGATIVE (NEGATIVE); LEUKO ESTERASE NEGATIVE (NEGATIVE); NITRITE NEGATIVE (NEGATIVE); PH 5.5 (5.0-9.0); UROBILINOGEN 0.2 E.U./dl (0.2-1.0)
[2017-11-11 17:58] LABS: RBC 0-2 rbc/hpf (0-2); WBC 0-2 wbc/hpf (0-5)
[2017-11-11 18:08] LABS: SGPT/ALT 46 U/L (12-78)
[2017-11-11] MEDS ORDERED: LEVAQUIN750 M1 PO (18:54)
== END 2017-11-11 18:58 | disposition home or self-care (01) ==
LOC: ED 15:59
PROVIDERS: Registered Nurse
DX: J18.1 Lobar pneumonia, unspecified organism (principal); F17.200 Nicotine dependence, unspecified, uncomplicated; Z79.899 Other long term (current) drug therapy

== ENCOUNTER 2017-11-27 11:11 | Inpatient (IN) | payer MEDICARE, BC ==
[~2017-11-27] VITALS: Ht 170.2 cm; Wt 81.8 kg
--- NOTE | ~2017-11-27 | WRIGHTHP ---
[place], [place] PATIENT HISTORY AND PHYSICAL EXAM NAME: ADI CHATMAN [facility] #: [id number] UNIT #: [id number] ROOM: 504 DOCTOR: TONI WHITE MD BIRTHDATE: [birth year] DOS: 11/27/2017 HISTORY OF PRESENT ILLNESS: The patient is a 71-year-old gentleman with a past medical history of: 1. Chronic atrial fibrillation. 2. Benign prostatic hypertrophy and urine retention. 3. Chronic pain. 4. Major depression, recurrent, mild. 5. Diverticulosis of the colon. 6. Benign essential hypertension. 7. Gastroesophageal reflux disease and esophagitis. 8. Hard of hearing 9. Mixed hyperlipidemia. 10. Normocytic anemia. 11. Posttraumatic stress disorder. 12. Nicotine smoke dependence. The patient presented to the office again for increasing shortness of breath, cough with sputum, persistent diarrhea and increasing weakness with difficulty in walking despite of outpatient treatment with antibiotics. Initially, the patient had started improving, but over the weekend, he started feeling even worse. The patient agreed to hospital admission and was sent over to [facility] for admission for outpatient treatment failure for pneumonia and now with acute diarrhea and dehydration, BUN and creatinine elevated to 24 and 1.3. Chest x-ray results are still pending. The patient has been started on hydration with normal saline and starting to feel better. The patient is very weak and has difficulty in ambulating and Physical Therapy has been consulted. No chest pains or fainting episodes. No palpitations. REVIEW OF SYSTEMS: LUNGS: The patient with increased shortness of breath, cough and sputum. GASTROINTESTINAL: The patient does have acute diarrhea for last 2-3 days. No vomiting. CARDIOVASCULAR SYSTEM: No chest pains or palpitations. FAMILY HISTORY: Noncontributory. SOCIAL HISTORY: Nicotine smoke dependence. Denies any alcohol or drug abuse. ALLERGIES: No known drug allergies. HOME MEDICATIONS: Digoxin, Paxil, Protonix, Flomax, Coumadin, tramadol. PHYSICAL EXAMINATION: GENERAL: Alert and oriented x 3, in no visible distress, very weak, generalized weakness. HEENT AND NECK: Extraocular movements are intact. Sclerae are anicteric. Oral mucosa is moist and clean. No obvious facial weakness. Neck is supple without any lymphadenopathy. No thyromegaly. No JVD. No carotid arterial bruits. LUNGS: The patient also has decreased breath sounds and bibasilar crackles on [place], [place] PATIENT HISTORY AND PHYSICAL EXAM NAME: ADI CHATMAN [facility] #: [id number] UNIT #: [id number] ROOM: [facility] DOCTOR: TONI WHITE MD BIRTHDATE: [birth year] lung auscultation. CARDIOVASCULAR SYSTEM: Heart rate is regular in rate and rhythm. S1 and S2 normally audible. No significant murmur or any other abnormal cardiac sounds. ABDOMEN: Soft, nontender. No obvious organomegaly. Bowel sounds are present. No obvious herniation. EXTREMITIES: Trace leg and pedal edema. CENTRAL NERVOUS SYSTEM: Alert and oriented x 3. Cranial nerves II-XII are intact. Speech is normal. The patient is able to move all extremities. Normal muscle strength. Deep tendon reflexes are equal on both sides. Plantars were downgoing. LABORATORY DATA: Chest x-ray results are still pending. Hemoglobin 12.3, normal platelets. BUN and creatinine elevated to 24 and 1.3. IMPRESSION AND PLAN: 1. Acute diarrhea, dehydration and hypovolemia. Blood pressure reduced to 103/60 and patient being hydrated with normal saline. The patient with acute diarrhea, may be related to Clostridium difficile colitis and also possibly viral gastroenteritis. Stool studies for Clostridium difficile are pending. 2. Left lower lobe pneumonia, increased shortness of breath and acute over chronic respiratory failure with failure to outpatient treatment with antibiotics. Now I am treating him with azithromycin and Rocephin and following him closely. Repeat chest x-ray results are pending. 3. 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 4. Chronic atrial fibrillation, with controlled heart rates. The patient is anticoagulated with Coumadin. INR was therapeutic. The patient is on digoxin to control his heart rate. 5. Benign prostatic hypertrophy and urinary retention, treated with Flomax, asymptomatic. 6. Gastroesophageal reflux disease and esophagitis, symptoms controlled with Protonix. 7. Major depression, recurrent, mild, treated with Paxil, which is being continued. 8. Acute ambulatory dysfunction with his diarrhea and increased weakness and infection. The patient started on physical therapy and we are taking fall precautions as well as bedsore precautions and using an air mattress. [place], [place] PATIENT HISTORY AND PHYSICAL EXAM NAME: ADI CHATMAN UNIT #: [id number] ROOM: [facility] DOCTOR: CINDY VAZQUEZ,TONI Whitney BIRTHDATE: [birth year] TONI WHITE MD CM:HISPHYS:PATIENT HISTORY AND PHYSICAL EXAMINATION 1103 1136 TONI WHITE MD 11/28/17 1134 interface
--- NOTE | ~2017-11-27 | WRIGHTHP ---
[place], [place] PATIENT HISTORY AND PHYSICAL EXAM NAME: ADI CHATMAN [facility] #: [id number] UNIT #: [id number] ROOM: 504 DOCTOR: TONI WHITE MD BIRTHDATE: [birth year] DOS: 11/27/2017 HISTORY OF PRESENT ILLNESS: The patient is a 71-year-old gentleman with a past medical history of: 1. COPD. 2. Recent pneumonia. 3. Recurrent falls and generalized weakness and adult failure to thrive. 4. Mixed hyperlipidemia. 5. Chronic back pains with degenerative joint disease. 6. Benign essential hypertension. 7. History of thyroid nodule. 8. Restless leg syndrome. 9. Hypothyroidism. 10. Generalized anxiety disorder and depression. 11. Coronary artery disease and coronary artery bypass grafts. DICTATION ENDS HERE TONI WHITE MD CM:HISPHYS:PATIENT HISTORY AND PHYSICAL EXAMINATION 1055 1108 TONI WHITE MD 11/29/17 0223 interface
--- NOTE | ~2017-11-27 | PR ---
[place], [place] PROGRESS NOTE [id number] UNIT #: [id number] ROOM: 504 DOCTOR: TONI WHITE MD BIRTHDATE: [birth year] DOS: 11/29/2017 SUBJECTIVE: The patient is breathing better. His diarrhea is somewhat improved. OBJECTIVE: VITAL SIGNS: Blood pressure 123/68, heart rate 71 beats per minute, breathing 18 times per minute, temperature of 98 degrees Fahrenheit. GENERAL: Generalized weakness. HEENT AND NECK: Exam within normal limits. CARDIOVASCULAR SYSTEM: Heart rate is regular in rate and rhythm. S1 and S2 normally audible. LUNGS: Clear to auscultation. ABDOMEN: Soft, nontender. No obvious organomegaly. Bowel sounds are present. EXTREMITIES: Without significant cyanosis or edema. IMPRESSION: 1. The patient with recent pneumonia in the posterior left lower lobe, not seen on the chest x-ray, is being treated with antibiotics. The patient's breathing is improving. 2. Acute diarrhea with nausea, vomiting, dehydration. Ambulatory function is improving with hydration with normal saline and the patient is able to tolerate diet better. 3. Ambulatory dysfunction. The patient was very weak and having difficulty in walking at home, is improving with physical therapy. 4. Chronic atrial fibrillation with controlled heart rates with digoxin. The patient anticoagulated with Coumadin with therapeutic INR at 2.2. 5. Benign essential hypertension. Blood pressures are being monitored and treated. 6. Coronary artery disease of tribe vessels without chest pains. 7. Hypothyroidism, treated and replaced with supplements. TONI WHITE MD CM:PNTRANS 1607 2218 TONI WHITE MD 11/29/17 2216 interface
--- NOTE | ~2017-11-27 | PR ---
[place], [place] PROGRESS NOTE [id number] UN[facility] #: [id number] ROOM: 504 DOCTOR: TONI WHITE MD BIRTHDATE: [birth year] DOS: 11/30/2017 SUBJECTIVE: The patient continues to feel better, but he is still somewhat short of breath and coughing up purulent sputum. OBJECTIVE: VITAL SIGNS: Blood pressure 130/75, heart rate 84 beats per minute, breathing 18 times per minute, temperature 98 degrees Fahrenheit. GENERAL APPEARANCE: The patient is alert and oriented x 3, in no visible distress. HEENT AND NECK: Exam within normal limits. CARDIOVASCULAR SYSTEM: Heart rate is regular in rate and rhythm. S1 and S2 normally audible. LUNGS: Somewhat decreased breath sounds and slight expiratory wheeze. ABDOMEN: Soft, nontender. No obvious organomegaly. Bowel sounds are present. EXTREMITIES: Without significant cyanosis or edema. IMPRESSION AND PLAN: 1. The patient with pneumonia, cough and purulent sputum. I will continue treatment with antibiotic and possibly he can go home tomorrow. 2. Chronic atrial fibrillation with controlled heart rates. The patient's INR is therapeutic at 2 with Coumadin, is being monitored. 3. Acute diarrhea, dehydration and hypovolemia, all improving. Clostridium difficile toxin has been negative. 4. Left lower lobe pneumonia, being treated as mentioned above. 5. Coronary artery disease of the [place] vessels, without chest pain. 6. Benign prostatic hypertrophy and urine retention, asymptomatic with Flomax. 7. Ambulatory dysfunction and weakness. The patient worked with Physical Therapy. TONI WHITE MD CM:PNTRANS 33 [phone] TONI WHITE MD 11/30/172154 interface
--- NOTE | ~2017-11-27 | DS ---
[place], [place] DISCHARGE SUMMARY NAME: ADI CHATMAN [facility] #: [id number] UNIT #: [id number] ROOM: 504 DOCTOR: TONI WHITE MD BIRTHDATE: [birth year] DOS: 12/01/2017 DISCHARGE DIAGNOSES: 1. The patient with left lower lobe pneumonia with cough and purulent sputum, improved with treatment with antibiotics. 2. Acute diarrhea, dehydration and hypovolemia, improved with hydration with normal saline. 3. Chronic atrial fibrillation. The patient is anticoagulated with Coumadin. 4. Coronary artery disease of [place] vessels, without chest pain. 5. Benign prostatic hypertrophy and urinary retention, asymptomatic with Flomax. 6. Ambulatory dysfunction and weakness with diarrhea and recent pneumonia, improved. The patient worked with physical therapy. 7. History of chronic obstructive pulmonary disease. 8. Mixed hyperlipidemia. 9. Chronic back pain and degenerative joint disease. 10. Benign essential hypertension. 11. History of thyroid nodule. 12. Restless leg syndrome. 13. Hypothyroidism. 14. Generalized anxiety disorder and depression. 15. History of coronary artery bypass graft. 16. Diverticulosis of the colon. 17. Nicotine smoke dependence. 18. Posttraumatic stress disorder. The patient was admitted with increasing shortness of breath and failure of outpatient treatment of his pneumonia. The patient was having difficulty with walking, diarrhea and was very weak and lives at home with his . The patient was admitted, started on antibiotics. Repeat chest x-ray did not show any pneumonia, which had actually showed up on CAT scan of the chest. The patient was treated with antibiotics, oxygen and breathing treatments and he has gradually improved. Generalized weakness and ambulatory dysfunction, improved with physical therapy. Nausea, vomiting, diarrhea and dehydration, hypovolemia, improved with hydration with normal saline. Coronary artery disease of [place] vessels, without chest pain. The patient has history of coronary artery bypass graft. Chronic atrial fibrillation with controlled heart rates. INR therapeutic at 2. The patient anticoagulated with Coumadin. Benign prostatic hypertrophy and urinary retention, asymptomatic with Flomax. GERD and esophagitis, treated and asymptomatic. The patient takes Protonix. Major depression, recurrent, mild, treated and controlled with Zoloft. [place], [place] DISCHARGE SUMMARY NAME: ADI CHATMAN [facility] #: [id number] UNIT #: [id number] ROOM: 504 DOCTOR: BETHANY WHITE MDZ J BIRTHDATE: [birth year] The patient is being discharged to home in stable condition and will be seen in my office on Sunday. LABORATORY DATA: Stool for C. diff normal. Diarrhea has resolved. INR therapeutic at 2. Normal serum electrolytes with hydration. Normal CBC except for hemoglobin of 11.8, which is chronic. DISCHARGE MANAGEMENT: Zoloft 50 mg a day, digoxin 125 mcg daily, Protonix 40 mg a day, Tylenol p.r.n., Flomax 0.4 mg a day, Coumadin 2 mg alternating with 2.5 mg daily, DuoNeb every 4 hours as needed, tramadol 50 mg t.i.d. p.r.n. for pain, especially back pains, Augmentin 875 mg twice a day for a week, then to be stopped. FOLLOWUP: At the office on Sunday. TONI WHITE MD CM:VENU 18 12 TONI WHITE MD 12/01/171909 interface
[~2017-11-27 11:11] MED LIST changes: +BUSPAR5 MG PO; +COMPLETE SENIO1 EACH PO; -COUMADIN3 M1 PO; -DIGOXIN0.125 MG PO; +LANOXIN0.125 MG PO; +LATANOPROST2.5 ML OP; +LEVAQUIN750 M1 PO; +LYRICA50 M1 PO; +PRAVACHOL80 M1 PO; +SERTRALINE HYDR25 MG PO; +TYLENOL325 M2 PO; +VITAMIN D33000 UNIT PO
[2017-11-27 11:30] VITALS: BP 109/83
[2017-11-27] MEDS ORDERED: HYDROXYZINE HCL25 MG PO (14:04)
[2017-11-27] MEDS ORDERED: LYRICA50 M1 PO (14:05)
[2017-11-27] MEDS ORDERED: PAXIL30 M2 PO (14:06)
[2017-11-27] MEDS ORDERED: TYLENOL325 M1 PO (14:11)
[2017-11-27] MEDS ORDERED: VITAMIN D33000 UNIT PO (14:46)
[2017-11-27] MEDS ORDERED: B COMPLEX1 EACH PO (14:47)
[2017-11-27] MEDS ORDERED: PROBIOTIC FORM1 EACH PO (14:48)
[2017-11-27 16:00] VITALS: BP 123/82
[2017-11-27 17:51] LABS: INTERNATIONAL NORM RATIO 2.2 (2.0-3.5)
[2017-11-27 20:00] VITALS: BP 129/73
[2017-11-28] VITALS: BP 120/78
[2017-11-28 06:35] LABS: BASO # 0.1 10*3/uL (0.0-0.1); BASO % 0.6 % (0.0-1.0); EOS # 0.2 10*3/uL (0.0-0.4); EOS % 2.4 % (1.0-4.0); HEMATOCRIT 35.5 % (42.0-52.0); HEMOGLOBIN 12.3 g/dl (14.0-18.0); LYMPH # 2.6 10*3/uL (1.3-4.4); LYMPH % 32.8 % (27.0-41.0); MEAN CELL VOLUME 92.2 fl (80.0-94.0); MEAN CORPUSCULAR HGB 31.9 pg (27.0-31.0); MEAN CORPUSCULAR HGB CONC 34.6 g/dl (33.0-37.0); MONO # 0.9 10*3/uL (0.1-1.0); MONO % 11.2 % (3.0-9.0); NEUT # 4.2 10*3/uL (2.3-7.9); NEUT % 52.6 % (47.0-73.0); PLATELET COUNT AUTOMATED 168 10*3/uL (130-400); RED BLOOD COUNT 3.85 10*6/uL (4.50-5.90); RED CELL DISTRI WIDTH 12.5 % (0-14.5); WHITE BLOOD COUNT 7.9 10*3/uL (4.8-10.8)
[2017-11-28 07:03] LABS: BUN 24 mg/dl (7-24); CHLORIDE 108 mmol/L (98-107); POTASSIUM 3.9 mmol/L (3.5-5.1); SODIUM 142 mmol/L (136-145)
[2017-11-28 08:00] VITALS: BP 103/59
[2017-11-28 12:00] VITALS: BP 108/58
[2017-11-28 16:00] VITALS: BP 121/74
[2017-11-28 21:00] VITALS: BP 128/67
[2017-11-29] VITALS: BP 117/59
[2017-11-29 06:23] LABS: BASO % 0.6 % (0.0-1.0); EOS # 0.2 10*3/uL (0.0-0.4); EOS % 3.4 % (1.0-4.0); HEMATOCRIT 33.9 % (42.0-52.0); HEMOGLOBIN 11.8 g/dl (14.0-18.0); LYMPH # 2.2 10*3/uL (1.3-4.4); LYMPH % 41.1 % (27.0-41.0); MEAN CELL VOLUME 91.4 fl (80.0-94.0); MEAN CORPUSCULAR HGB 31.8 pg (27.0-31.0); MEAN CORPUSCULAR HGB CONC 34.8 g/dl (33.0-37.0); MEAN PLATELET VOLUME 10.9 fl (9.6-12.3); MONO # 0.6 10*3/uL (0.1-1.0); MONO % 10.7 % (3.0-9.0); NEUT # 2.3 10*3/uL (2.3-7.9); NEUT % 43.8 % (47.0-73.0); PLATELET COUNT AUTOMATED 177 10*3/uL (130-400); RED BLOOD COUNT 3.71 10*6/uL (4.50-5.90); RED CELL DISTRI WIDTH 12.4 % (0-14.5); WHITE BLOOD COUNT 5.3 10*3/uL (4.8-10.8)
[2017-11-29 06:37] LABS: BUN 16 mg/dl (7-24); CHLORIDE 111 mmol/L (98-107); CREATININE 1.14 mg/dL (0.70-1.30); POTASSIUM 3.8 mmol/L (3.5-5.1); SODIUM 143 mmol/L (136-145)
[2017-11-29 08:00] VITALS: BP 133/60
[2017-11-29 12:00] VITALS: BP 123/68
[2017-11-29 16:00] VITALS: BP 142/70
[2017-11-30] VITALS: BP 142/47
[2017-11-30 06:38] LABS: BASO % 0.5 % (0.0-1.0); EOS # 0.2 10*3/uL (0.0-0.4); EOS % 2.8 % (1.0-4.0); HEMATOCRIT 34.3 % (42.0-52.0); HEMOGLOBIN 11.8 g/dl (14.0-18.0); LYMPH # 2.3 10*3/uL (1.3-4.4); LYMPH % 40.4 % (27.0-41.0); MEAN CELL VOLUME 90.7 fl (80.0-94.0); MEAN CORPUSCULAR HGB 31.2 pg (27.0-31.0); MEAN CORPUSCULAR HGB CONC 34.4 g/dl (33.0-37.0); MEAN PLATELET VOLUME 11.2 fl (9.6-12.3); MONO # 0.6 10*3/uL (0.1-1.0); NEUT # 2.6 10*3/uL (2.3-7.9); NEUT % 45.9 % (47.0-73.0); PLATELET COUNT AUTOMATED 201 10*3/uL (130-400); RED BLOOD COUNT 3.78 10*6/uL (4.50-5.90); RED CELL DISTRI WIDTH 12.2 % (0-14.5); WHITE BLOOD COUNT 5.6 10*3/uL (4.8-10.8)
[2017-11-30 06:41] LABS: BUN 10 mg/dl (7-24); CHLORIDE 108 mmol/L (98-107); CREATININE 0.97 mg/dL (0.70-1.30); POTASSIUM 3.8 mmol/L (3.5-5.1); SODIUM 142 mmol/L (136-145)
[2017-11-30 08:00] VITALS: BP 138/64
[2017-11-30 16:00] VITALS: BP 130/75
[2017-12-01] VITALS: BP 136/80
[2017-12-01 08:00] VITALS: BP 140/70
[2017-12-01 16:00] VITALS: BP 127/63
[2017-12-01] MEDS ORDERED: AUGMENTIN 875-875 MG PO (18:10)
== END 2017-12-01 19:10 | disposition home or self-care (01) | DRG 193 ==
LOC: 5E 11:11
PROVIDERS: Internal Medicine
DX: J18.1 Lobar pneumonia, unspecified organism (principal); J96.20 Acute and chronic respiratory failure, unspecified whether with hypoxia or hypercapnia; I48.2 Chronic atrial fibrillation; E86.0 Dehydration; F33.9 Major depressive disorder, recurrent, unspecified; E03.9 Hypothyroidism, unspecified; J44.0 Chronic obstructive pulmonary disease with (acute) lower respiratory infection; E78.2 Mixed hyperlipidemia; E86.1 Hypovolemia; F41.1 Generalized anxiety disorder; F43.10 Post-traumatic stress disorder, unspecified; G89.29 Other chronic pain; I25.10 Atherosclerotic heart disease of native coronary artery without angina pectoris; R19.7 Diarrhea, unspecified; R26.2 Difficulty in walking, not elsewhere classified; N40.1 Benign prostatic hyperplasia with lower urinary tract symptoms; K21.0 Gastro-esophageal reflux disease with esophagitis; I10 Essential (primary) hypertension; K57.90 Diverticulosis of intestine, part unspecified, without perforation or abscess without bleeding; R62.7 Adult failure to thrive; G25.81 Restless legs syndrome; M54.9 Dorsalgia, unspecified; M19.90 Unspecified osteoarthritis, unspecified site; F17.210 Nicotine dependence, cigarettes, uncomplicated; Z95.1 Presence of aortocoronary bypass graft; Z79.899 Other long term (current) drug therapy; Z79.01 Long term (current) use of anticoagulants; X58.XXXA Exposure to other specified factors, initial encounter; Y93.89 Activity, other specified; Y92.89 Other specified places as the place of occurrence of the external cause; Y99.8 Other external cause status; R33.8 Other retention of urine

== ENCOUNTER 2017-12-31 16:34 | Emergency (ER) | payer MEDICARE, BC ==
[~2017-12-31] VITALS: Ht 172.7 cm; Wt 81.6 kg
[~2017-12-31 16:34] MED LIST changes: +AUGMENTIN 875-875 MG PO; +B COMPLEX1 EACH PO; +HYDROXYZINE HCL25 MG PO; +PAXIL30 M2 PO; +PROBIOTIC FORM1 EACH PO
[2017-12-31 17:26] LABS: BILIRUBIN NEGATIVE (NEGATIVE); BLOOD NEGATIVE (NEGATIVE); CLARITY CLEAR (CLEAR); COLOR YELLOW (YELLOW); GLUCOSE NEGATIVE (NEGATIVE); KETONE NEGATIVE (NEGATIVE); LEUKO ESTERASE NEGATIVE (NEGATIVE); NITRITE NEGATIVE (NEGATIVE); PH 5.5 (5.0-9.0); UROBILINOGEN 0.2 E.U./dl (0.2-1.0)
[2017-12-31 17:39] LABS: WBC 0-2 wbc/hpf (0-5)
[2017-12-31 17:46] LABS: BASO # 0.1 10*3/uL (0.0-0.1); BASO % 0.7 % (0.0-1.0); EOS # 0.2 10*3/uL (0.0-0.4); EOS % 2.2 % (1.0-4.0); HEMATOCRIT 39.2 % (42.0-52.0); LYMPH % 36.3 % (27.0-41.0); MEAN CELL VOLUME 88.1 fl (80.0-94.0); MEAN CORPUSCULAR HGB 31.5 pg (27.0-31.0); MEAN CORPUSCULAR HGB CONC 35.7 g/dl (33.0-37.0); MEAN PLATELET VOLUME 10.9 fl (9.6-12.3); MONO # 0.8 10*3/uL (0.1-1.0); MONO % 9.9 % (3.0-9.0); NEUT # 4.1 10*3/uL (2.3-7.9); NEUT % 50.5 % (47.0-73.0); PLATELET COUNT AUTOMATED 249 10*3/uL (130-400); RED BLOOD COUNT 4.45 10*6/uL (4.50-5.90); RED CELL DISTRI WIDTH 12.6 % (0-14.5); WHITE BLOOD COUNT 8.1 10*3/uL (4.8-10.8)
[2017-12-31 17:55] LABS: ACT PARTIAL THROMBO TIME 27.7 SECONDS (20.8-31.5); INTERNATIONAL NORM RATIO 1.2 (2.0-3.5)
[2017-12-31 18:03] LABS: ALBUMIN 3.5 gm/dl (3.1-4.5); ALKALINE PHOSPHATASE 80 U/L (45-117); BUN 18 mg/dl (7-24); CHLORIDE 106 mmol/L (98-107); CREATININE 1.19 mg/dL (0.70-1.30); LIPASE 244 U/L (73-393); POTASSIUM 4.3 mmol/L (3.5-5.1); SGOT/AST 26 IU/L (3-35); SGPT/ALT 39 U/L (12-78); SODIUM 138 mmol/L (136-145); TOTAL PROTEIN 7.8 gm/dL (6.4-8.2); TROPONIN I < 0.015 ng/ml (<0.045)
[2017-12-31 18:14] LABS: DIGOXIN 0.71 ng/ml (0.8-2.0)
[2018-01-01] MEDS ORDERED: FISH OIL 1,2001 EACH PO (09:16)
[2018-01-01] MEDS ORDERED: MULTIPLE VITAM1 EAC1 PO (09:17)
[2018-01-01] MEDS ORDERED: METAMUCIL660 GM PO (09:18)
== END 2017-12-31 19:48 | disposition home or self-care (01) ==
LOC: ED 16:34
PROVIDERS: Emergency Medicine
DX: R10.32 Left lower quadrant pain (principal); F17.200 Nicotine dependence, unspecified, uncomplicated; I48.91 Unspecified atrial fibrillation; K21.9 Gastro-esophageal reflux disease without esophagitis; E78.5 Hyperlipidemia, unspecified; G89.29 Other chronic pain; I10 Essential (primary) hypertension; Z98.890 Other specified postprocedural states; Z79.899 Other long term (current) drug therapy; Z79.01 Long term (current) use of anticoagulants

== ENCOUNTER → 2018-01-04 | Day surgery (SDC) | payer MEDICARE, BC ==
[~2018-01-04] VITALS: Ht 170.1 cm; Wt 81.6 kg
[~2018-01-04] MED LIST changes: +FISH OIL 1,2001 EACH PO; +METAMUCIL660 GM PO; +MULTIPLE VITAM1 EAC1 PO
--- NOTE | ~2018-01-04 | O ---
[place], [place] OPERATIVE NOTE NAME: ADI CHATMAN UNIT #: [id number] ROOM: DOCTOR: BRANDEN LINDA MD BIRTHDATE: [birth year] DOS: 01/04/2018 GASTROENDOSCOPIC REPORT HISTORY OF PRESENT ILLNESS: A 72-year-old patient, who has presented with chief complaint of dyspepsia in addition to a sensation of change in bowel habit, difficulty with evacuation of stool, and old history of C. diff last year. ALLERGIES: No known medication. FAMILY HISTORY: Noncontributory. PAST SURGICAL HISTORY: Lower back surgery. PAST MEDICAL HISTORY: Depression, hyperlipidemia, and atrial fibrillation. SOCIAL HISTORY: Smoker, nonalcohol consumer. PROCEDURE: Today's procedure part of investigation is panendoscopy. PREMEDICATION: Versed and Diprivan. SCOPE: Olympus forward-viewing gastroscope Q10 video. REPORT: After putting the patient in left lateral position and application of lubricant to the scope, the scope was introduced. Thereafter, under direct visualization, I advanced through the length of esophagus without difficulty. Gastric pouch was entered. Evidence of gastritis was seen. Duodenal bulb, second and third part within normal limits. Antral biopsy obtained. The patient was gradually extubated and tolerated the procedure well. IMPRESSION: Gastritis, status post biopsy. PLAN AND DISCUSSION: We are going to keep the patient on omeprazole 20 mg daily. As far as change in bowel habit and irregularity of evacuation of bowel. We are going to check the colon. GASTROENDOSCOPIC REPORT INDICATIONS: The patient has presented with chief complaint of change in bowel habit, sensation of incomplete evacuation of stool. PROCEDURE: Today's procedure part of investigation is colonoscopy plus piecemeal polypectomy. PREMEDICATION: Versed and Diprivan. SCOPE: Olympus folding colonoscope 10L video. REPORT: After putting the patient in left lateral position and application of [place], [place] OPERATIVE NOTE NAME: ADI CHATMAN UNIT #: [id number] ROOM: DOCTOR: BRANDEN LINDA MD BIRTHDATE: [birth year] lubricant to the scope, the scope was introduced. Thereafter, under direct visualization, I advanced through the length of colon without difficulty. Diverticulosis and severe angulation of sigmoid colon were identified. Diverticulosis is severe in degree as well. Tortuosity of colon and significant sigmoid colon. However, the scope negotiated to base of cecum, ileocecal valve was defined. Appendix was photographed. Scope was gradually withdrawn from ascending, transverse, descending colon back to the sigmoid colon, a sessile polypoid lesion with piecemeal polypectomy removed and the patient extubated, tolerated procedure well. IMPRESSION: Severe tortuosity of the sigmoid colon, severe diverticulosis of sigmoid colon, sessile polyp sigmoid colon, status post piecemeal polypectomy. PLAN AND DISCUSSION: This patient's irregular bowel and incomplete evacuation could be explained based on anatomical deformities that he has at the sigmoid colon. He is advised with high fiber diet and assuring that bowel evacuation happens daily and clinical reassessment. Thank you very much indeed. BRANDEN LINDA MD CM:OPRECORD:OPERATIVE NOTE 1121 1327 TONI LINDA MD 01/04/18 1326 interface
[2018-01-04 10:12] VITALS: BP 115/74
[2018-01-04 11:44] VITALS: BP 104/65
[2018-01-04 11:48] VITALS: BP 115/74
[2018-01-04 11:50] VITALS: BP 113/70
[2018-01-04 12:00] VITALS: BP 121/74
== END | disposition home or self-care (01) ==
LOC: SDC 01-01 11:00
DX: K63.5 Polyp of colon (principal); K29.50 Unspecified chronic gastritis without bleeding; K57.30 Diverticulosis of large intestine without perforation or abscess without bleeding; K63.89 Other specified diseases of intestine; F32.9 Major depressive disorder, single episode, unspecified; E78.5 Hyperlipidemia, unspecified; I48.91 Unspecified atrial fibrillation; I10 Essential (primary) hypertension; K21.9 Gastro-esophageal reflux disease without esophagitis; F41.9 Anxiety disorder, unspecified; F43.10 Post-traumatic stress disorder, unspecified; F17.210 Nicotine dependence, cigarettes, uncomplicated; E78.00 Pure hypercholesterolemia, unspecified; R53.82 Chronic fatigue, unspecified; Z82.49 Family history of ischemic heart disease and other diseases of the circulatory system; Z80.9 Family history of malignant neoplasm, unspecified

== ENCOUNTER → 2018-02-23 | Outpatient (CLI) | payer MEDICARE, BC | END | disposition home or self-care (01) | LOC: CT 08:53 | DX: K76.0 Fatty (change of) liver, not elsewhere classified (principal); K57.30 Diverticulosis of large intestine without perforation or abscess without bleeding ==

== ENCOUNTER 2018-04-13 14:29 | Emergency (ER) | payer MEDICARE, BC ==
[~2018-04-13] VITALS: Ht 170.1 cm; Wt 81.6 kg
[2018-04-13 15:27] LABS: BILIRUBIN NEGATIVE (NEGATIVE); BLOOD NEGATIVE (NEGATIVE); CLARITY CLEAR (CLEAR); COLOR YELLOW (YELLOW); GLUCOSE NEGATIVE (NEGATIVE); KETONE NEGATIVE (NEGATIVE); LEUKO ESTERASE NEGATIVE (NEGATIVE); NITRITE NEGATIVE (NEGATIVE); UROBILINOGEN 0.2 E.U./dl (0.2-1.0)
[2018-04-13 15:40] LABS: BASO # 0.1 10*3/uL (0.0-0.1); BASO % 0.4 % (0.0-1.0); EOS # 0.1 10*3/uL (0.0-0.4); EOS % 0.6 % (1.0-4.0); HEMATOCRIT 39.6 % (42.0-52.0); HEMOGLOBIN 13.6 g/dl (14.0-18.0); LYMPH # 2.3 10*3/uL (1.3-4.4); LYMPH % 17.2 % (27.0-41.0); MEAN CELL VOLUME 90.2 fl (80.0-94.0); MEAN CORPUSCULAR HGB CONC 34.3 g/dl (33.0-37.0); MEAN PLATELET VOLUME 10.1 fl (9.6-12.3); MONO # 1.2 10*3/uL (0.1-1.0); MONO % 8.7 % (3.0-9.0); NEUT # 9.9 10*3/uL (2.3-7.9); NEUT % 72.7 % (47.0-73.0); PLATELET COUNT AUTOMATED 299 10*3/uL (130-400); RED BLOOD COUNT 4.39 10*6/uL (4.50-5.90); RED CELL DISTRI WIDTH 12.6 % (0-14.5); WHITE BLOOD COUNT 13.6 10*3/uL (4.8-10.8)
[2018-04-13 15:44] LABS: BACTERIA 1+; EPITHELIAL CELLS 0-2; MUCOUS TRACE; RBC 0-2 rbc/hpf (0-2); WBC 0-2 wbc/hpf (0-5)
[2018-04-13 15:55] LABS: ALBUMIN 3.4 gm/dl (3.1-4.5); ALKALINE PHOSPHATASE 83 U/L (45-117); BUN 19 mg/dl (7-24); CHLORIDE 103 mmol/L (98-107); CREATININE 1.41 mg/dL (0.70-1.30); POTASSIUM 4.6 mmol/L (3.5-5.1); SGOT/AST 16 IU/L (3-35); SGPT/ALT 24 U/L (12-78); SODIUM 138 mmol/L (136-145); TOTAL PROTEIN 7.7 gm/dL (6.4-8.2)
[2018-04-13] MEDS ORDERED: LEVOFLOXACIN500 MG PO (19:28)
[2018-04-13] MEDS ORDERED: FLAGYL500 MG PO (19:28)
[2018-04-22] MEDS ORDERED: CIPRO500 MG PO (17:44)
[2018-04-22] MEDS ORDERED: PYRIDIUM100 MG PO (17:44)
[2018-05-07] MEDS ORDERED: LIPITOR20 MG PO (19:27)
[2018-05-10] MEDS ORDERED: AUGMENTIN 875-875 MG PO (10:21)
[2018-05-10] MEDS ORDERED: FLAGYL500 MG PO (10:21)
== END 2018-04-13 19:50 | disposition home or self-care (01) ==
LOC: ED 14:29
PROVIDERS: Emergency Medicine
DX: K57.32 Diverticulitis of large intestine without perforation or abscess without bleeding (principal); R10.32 Left lower quadrant pain; F17.200 Nicotine dependence, unspecified, uncomplicated; I48.91 Unspecified atrial fibrillation; G89.29 Other chronic pain; I10 Essential (primary) hypertension; K21.9 Gastro-esophageal reflux disease without esophagitis; E78.5 Hyperlipidemia, unspecified; Z98.890 Other specified postprocedural states; Z79.01 Long term (current) use of anticoagulants; Z79.899 Other long term (current) drug therapy

== ENCOUNTER 2018-05-21 15:56 | Emergency (ER) | payer OTHER, MEDICARE, BC ==
[~2018-05-21] VITALS: Ht 170.1 cm; Wt 81.6 kg
--- NOTE | ~2018-05-21 | EKG ---
[place], [place] ELECTROCARDIOGRAM REPORT NAME: ADI CHATMAN UNIT #: [id number] ROOM: DOCTOR: LÓPEZ DRAFT REPORT BIRTHDATE: [birth year] [facility] Test Date: 2018-05-21 Test Time: 16:13:13 Pat Name: ADI CHATMAN Department: Room: Gender: Clean Energy Policy Analyst: SS RESP : 1945 Requested By: KILO IDETRICH Order Number: [id number] Reading MD: Damari Rand MD Measurements Intervals [place] Rate: 73 P: [place]: QRS: 45 QRSD: 130 T: 17 QT: 409 QTc: 451 Interpretive Statements Atrial fibrillation Right bundle branch block Compared to ECG 05/07/2018 11:05:11 No significant changes Electronically Signed On 05-21-2018 16:52:24 PDT by Damari Rand MD CM:EKGRPT:ELECTROCARDIOGRAM REPORT [id number] KILO DAWN DRAFT REPORT KILO DIETRICH M.D.
[~2018-05-21 15:56] MED LIST changes: +LEVOFLOXACIN500 MG PO; +LIPITOR20 MG PO; +PYRIDIUM100 MG PO
[2018-05-21 16:36] LABS: BASO # 0.1 10*3/uL (0.0-0.1); BASO % 0.6 % (0.0-1.0); EOS # 0.1 10*3/uL (0.0-0.4); EOS % 0.9 % (1.0-4.0); HEMATOCRIT 41.4 % (42.0-52.0); HEMOGLOBIN 14.2 g/dl (14.0-18.0); LYMPH # 2.3 10*3/uL (1.3-4.4); LYMPH % 24.8 % (27.0-41.0); MEAN CELL VOLUME 90.4 fl (80.0-94.0); MEAN CORPUSCULAR HGB CONC 34.3 g/dl (33.0-37.0); MEAN PLATELET VOLUME 10.9 fl (9.6-12.3); MONO # 0.7 10*3/uL (0.1-1.0); MONO % 7.1 % (3.0-9.0); NEUT # 6.2 10*3/uL (2.3-7.9); NEUT % 66.3 % (47.0-73.0); PLATELET COUNT AUTOMATED 311 10*3/uL (130-400); RED BLOOD COUNT 4.58 10*6/uL (4.50-5.90); RED CELL DISTRI WIDTH 13.1 % (0-14.5); WHITE BLOOD COUNT 9.3 10*3/uL (4.8-10.8)
[2018-05-21 16:45] LABS: ACT PARTIAL THROMBO TIME 30.1 SECONDS (20.8-31.5); INTERNATIONAL NORM RATIO 1.9 (2.0-3.5)
[2018-05-21 16:57] LABS: ALBUMIN 3.4 gm/dl (3.1-4.5); ALKALINE PHOSPHATASE 68 U/L (45-117); BUN 22 mg/dl (7-24); CHLORIDE 104 mmol/L (98-107); CREATININE 1.19 mg/dL (0.70-1.30); POTASSIUM 4.2 mmol/L (3.5-5.1); SGOT/AST 19 IU/L (3-35); SGPT/ALT 27 U/L (12-78); SODIUM 138 mmol/L (136-145); TOTAL PROTEIN 7.6 gm/dL (6.4-8.2)
[2018-05-21 16:58] LABS: TROPONIN I < 0.015 ng/ml (<0.045)
[2018-05-21 17:40] LABS: BILIRUBIN NEGATIVE (NEGATIVE); BLOOD NEGATIVE (NEGATIVE); CLARITY CLEAR (CLEAR); COLOR YELLOW (YELLOW); GLUCOSE NEGATIVE (NEGATIVE); KETONE NEGATIVE (NEGATIVE); LEUKO ESTERASE NEGATIVE (NEGATIVE); NITRITE NEGATIVE (NEGATIVE); UROBILINOGEN 0.2 E.U./dl (0.2-1.0)
[2018-05-21 18:02] LABS: BACTERIA TRACE
== END 2018-05-21 19:00 | disposition home or self-care (01) ==
LOC: ED 15:56
PROVIDERS: Emergency Medicine
DX: K29.70 Gastritis, unspecified, without bleeding (principal); F41.9 Anxiety disorder, unspecified; I48.91 Unspecified atrial fibrillation; G89.29 Other chronic pain; I10 Essential (primary) hypertension; K21.9 Gastro-esophageal reflux disease without esophagitis; E78.5 Hyperlipidemia, unspecified; F17.200 Nicotine dependence, unspecified, uncomplicated; Z98.890 Other specified postprocedural states; Z79.01 Long term (current) use of anticoagulants; Z79.899 Other long term (current) drug therapy

== ENCOUNTER → 2018-07-06 | Outpatient (CLI) | payer MEDICARE, BC | END | disposition home or self-care (01) | LOC: LAB 13:03 | DX: B27.90 Infectious mononucleosis, unspecified without complication (principal); R53.83 Other fatigue ==

== ENCOUNTER 2019-04-09 15:22 | Emergency (ER) | payer MEDICARE, BC ==
[~2019-04-09] VITALS: Ht 182.8 cm; Wt 88.5 kg
--- NOTE | ~2019-04-09 | EKG ---
[place], [place] ELECTROCARDIOGRAM REPORT NAME: ADI CHATMAN UNIT #: [id number] ROOM: DOCTOR: EPIPHANY DRAFT REPORT BIRTHDATE: [birth year] [facility] Test Date: 2019-04-09 Test Time: 15:52:07 Pat Name: ADI CHATMAN Department: Room: Gender: Complaint Specialist: Tameka Varner : 1945 Requested By: VAL العلي Order Number: [id number] Reading MD: Juancarlos Costello Measurements Intervals [place] Rate: 84 P: [place]: QRS: 21 QRSD: 127 T: -11 QT: 378 QTc: 447 Interpretive Statements Atrial fibrillation Right bundle branch block Compared to ECG 03/23/2019 17:23:35 Right bundle-branch block now present Electronically Signed On 04-10-2019 6:27:23 PDT by Juancarlos Costello CM:EKGRPT:ELECTROCARDIOGRAM REPORT 1552 0627 VAL PEREZ DRAFT REPORT VAL العلي DO
[~2019-04-09 15:22] MED LIST changes: +SEPTDS PO
[2019-04-09 16:16] LABS: BILIRUBIN NEGATIVE (NEGATIVE); BLOOD NEGATIVE (NEGATIVE); CLARITY CLEAR (CLEAR); COLOR YELLOW (YELLOW); GLUCOSE NEGATIVE (NEGATIVE); KETONE NEGATIVE (NEGATIVE); LEUKO ESTERASE NEGATIVE (NEGATIVE); NITRITE NEGATIVE (NEGATIVE); SPECIFIC GRAVITY 1.025 (1.005-1.030); UROBILINOGEN 0.2 E.U./dl (0.2-1.0)
[2019-04-09 16:18] LABS: BASO # 0.1 10*3/uL (0.0-0.1); BASO % 0.7 % (0.0-1.0); EOS # 0.2 10*3/uL (0.0-0.4); HEMATOCRIT 37.5 % (42.0-52.0); HEMOGLOBIN 12.8 g/dl (14.0-18.0); LYMPH # 1.8 10*3/uL (1.3-4.4); LYMPH % 20.3 % (27.0-41.0); MEAN CELL VOLUME 96.2 fl (80.0-94.0); MEAN CORPUSCULAR HGB 32.8 pg (27.0-31.0); MEAN CORPUSCULAR HGB CONC 34.1 g/dl (33.0-37.0); MEAN PLATELET VOLUME 10.7 fl (9.6-12.3); MONO # 0.9 10*3/uL (0.1-1.0); MONO % 10.3 % (3.0-9.0); NEUT % 66.1 % (47.0-73.0); PLATELET COUNT AUTOMATED 226 10*3/uL (130-400); RED CELL DISTRI WIDTH 13.3 % (0-14.5); WHITE BLOOD COUNT 9.1 10*3/uL (4.8-10.8)
[2019-04-09 16:33] LABS: ALBUMIN 3.2 gm/dl (3.1-4.5); ALKALINE PHOSPHATASE 87 U/L (45-117); BUN 21 mg/dl (7-24); CHLORIDE 106 mmol/L (98-107); CREATININE 1.41 mg/dL (0.70-1.30); INTERNATIONAL NORM RATIO 2.7 (2.0-3.5); LIPASE 142 U/L (73-393); POTASSIUM 4.1 mmol/L (3.5-5.1); SGOT/AST 22 IU/L (3-35); SGPT/ALT 30 U/L (12-78); SODIUM 138 mmol/L (136-145); TOTAL PROTEIN 7.6 gm/dL (6.4-8.2)
[2019-04-09 16:34] LABS: BACTERIA 1+; WBC 0-2 wbc/hpf (0-5)
[2019-04-09 16:44] LABS: DIGOXIN 0.85 ng/ml (0.8-2.0); TROPONIN I < 0.015 ng/ml (<0.045)
[2019-04-09] MEDS ORDERED: FLAGYL500 MG PO (19:10)
[2019-04-09] MEDS ORDERED: CIPRO500 MG PO (19:10)
[2019-04-09] MEDS ORDERED: PERCOCET 5-3251 EACH PO (19:10)
== END 2019-04-09 19:25 | disposition left against medical advice (07) ==
LOC: ED 15:22
PROVIDERS: Emergency Medicine
DX: K57.32 Diverticulitis of large intestine without perforation or abscess without bleeding (principal); R82.998 Other abnormal findings in urine; I48.91 Unspecified atrial fibrillation; E78.5 Hyperlipidemia, unspecified; K21.9 Gastro-esophageal reflux disease without esophagitis; I10 Essential (primary) hypertension; G89.29 Other chronic pain; F17.200 Nicotine dependence, unspecified, uncomplicated; Z79.899 Other long term (current) drug therapy

== ENCOUNTER 2019-06-19 15:19 | Emergency (ER) | payer MEDICARE, BC ==
[~2019-06-19] VITALS: Ht 170.1 cm; Wt 81.6 kg
[~2019-06-19 15:19] MED LIST changes: +PERCOCET 5-3251 EACH PO
[2019-06-19 16:08] LABS: BASO # 0.1 10*3/uL (0.0-0.1); BASO % 0.8 % (0.0-1.0); EOS # 0.2 10*3/uL (0.0-0.4); EOS % 2.2 % (1.0-4.0); HEMATOCRIT 40.8 % (42.0-52.0); HEMOGLOBIN 13.8 g/dl (14.0-18.0); LYMPH # 2.7 10*3/uL (1.3-4.4); LYMPH % 34.1 % (27.0-41.0); MEAN CELL VOLUME 93.6 fl (80.0-94.0); MEAN CORPUSCULAR HGB 31.7 pg (27.0-31.0); MEAN CORPUSCULAR HGB CONC 33.8 g/dl (33.0-37.0); MEAN PLATELET VOLUME 10.6 fl (9.6-12.3); MONO # 0.8 10*3/uL (0.1-1.0); MONO % 9.7 % (3.0-9.0); NEUT # 4.1 10*3/uL (2.3-7.9); NEUT % 52.8 % (47.0-73.0); PLATELET COUNT AUTOMATED 270 10*3/uL (130-400); RED BLOOD COUNT 4.36 10*6/uL (4.50-5.90); RED CELL DISTRI WIDTH 13.2 % (0-14.5); WHITE BLOOD COUNT 7.8 10*3/uL (4.8-10.8)
[2019-06-19 16:30] LABS: ALBUMIN 3.3 gm/dl (3.1-4.5); ALKALINE PHOSPHATASE 84 U/L (45-117); BUN 18 mg/dl (7-24); CHLORIDE 106 mmol/L (98-107); CREATININE 1.36 mg/dL (0.70-1.30); LIPASE 236 U/L (73-393); POTASSIUM 4.2 mmol/L (3.5-5.1); SGOT/AST 20 IU/L (3-35); SGPT/ALT 32 U/L (12-78); SODIUM 137 mmol/L (136-145); TOTAL PROTEIN 7.6 gm/dL (6.4-8.2)
[2019-06-19 17:27] LABS: BILIRUBIN NEGATIVE (NEGATIVE); BLOOD NEGATIVE (NEGATIVE); CLARITY CLEAR (CLEAR); COLOR YELLOW (YELLOW); GLUCOSE NEGATIVE (NEGATIVE); KETONE NEGATIVE (NEGATIVE); LEUKO ESTERASE NEGATIVE (NEGATIVE); NITRITE NEGATIVE (NEGATIVE); SPECIFIC GRAVITY 1.015 (1.005-1.030); UROBILINOGEN 0.2 E.U./dl (0.2-1.0)
[2019-06-19 17:34] LABS: EPITHELIAL CELLS 0-2
[2019-06-19] MEDS ORDERED: AMOXICILLIN500 M2 PO (17:52)
[2019-06-19] MEDS ORDERED: ZOFRAN4 MG PO (17:52)
[2019-06-19] MEDS ORDERED: ZYRTEC10 MG PO (17:52)
[2019-06-19] MEDS ORDERED: PREDNISONE20 M1 PO (17:52)
== END 2019-06-19 17:52 | disposition home or self-care (01) ==
LOC: ED 15:19
PROVIDERS: Nurse Practitioner Family
DX: J20.9 Acute bronchitis, unspecified (principal); R19.7 Diarrhea, unspecified; F17.200 Nicotine dependence, unspecified, uncomplicated; Z79.899 Other long term (current) drug therapy; Z79.01 Long term (current) use of anticoagulants

== ENCOUNTER 2020-03-05 13:55 | Inpatient (IN) | payer MEDICARE, BC ==
[~2020-03-05] VITALS: Ht 170.1 cm; Wt 86.2 kg
[~2020-03-05 13:55] MED LIST changes: +AMOXICILLIN500 M2 PO; +PREDNISONE20 M1 PO; +ZYRTEC10 MG PO
[2020-03-05 14:10] VITALS: BP 121/74
[2020-03-05 15:41] LABS: BASO % 0.3 % (0.0-1.0); EOS % 0.1 % (1.0-4.0); LYMPH # 0.7 10*3/uL (1.3-4.4); LYMPH % 10.4 % (27.0-41.0); MEAN CELL VOLUME 91.7 fl (80.0-94.0); MEAN CORPUSCULAR HGB CONC 33.9 g/dl (33.0-37.0); MEAN PLATELET VOLUME 11.5 fl (9.6-12.3); MONO # 0.8 10*3/uL (0.1-1.0); MONO % 11.4 % (3.0-9.0); NEUT # 5.2 10*3/uL (2.3-7.9); NEUT % 77.5 % (47.0-73.0); PLATELET COUNT AUTOMATED 177 10*3/uL (130-400); RED CELL DISTRI WIDTH 13.3 % (0-14.5); WHITE BLOOD COUNT 6.8 10*3/uL (4.8-10.8)
[2020-03-05 15:50] LABS: INTERNATIONAL NORM RATIO 1.2 (2.0-3.5)
[2020-03-05 15:59] LABS: ALBUMIN 3.3 gm/dl (3.1-4.5); CREATININE 1.54 mg/dL (0.70-1.30); POTASSIUM 4.5 mmol/L (3.5-5.1); TOTAL PROTEIN 8.3 gm/dL (6.4-8.2)
--- NOTE | 2020-03-05 16:27 | NUR ---
PT WAS PROVIDED URINAL TRIED TO PROVIDE URINE SAMPLE AND UNABLE AT THIS TIME.
--- NOTE | 2020-03-05 17:00 | NUR ---
PT IN CT AT THIS TIME.
[2020-03-05 17:42] VITALS: BP 123/79
--- NOTE | 2020-03-05 19:04 | NUR ---
WE DID TRY TO STRAIGHT CATH THE PT WITHOUT ANY SUCCESS.
--- NOTE | 2020-03-05 19:39 | NUR ---
PT AGAIN PROMPED TO URINATE. ASKED PT IF HE WOULD BE WILLING TO TRY STRAIGHT CATH AGAIN, HE REFUSES. PT PROVIDED URINAL AT BEDSIDE.
[2020-03-05 21:06] LABS: BILIRUBIN 1+ (NEGATIVE); BLOOD 3+ (NEGATIVE); CLARITY SL CLOUDY (CLEAR); COLOR YELLOW (YELLOW); GLUCOSE NEGATIVE (NEGATIVE); KETONE 1+ (NEGATIVE); LEUKO ESTERASE NEGATIVE (NEGATIVE); NITRITE NEGATIVE (NEGATIVE); SPECIFIC GRAVITY 1.025 (1.005-1.030); UROBILINOGEN 0.2 E.U./dl (0.2-1.0)
[2020-03-05 21:10] LABS: BACTERIA TRACE; RBC 41-50 rbc/hpf (0-2)
[2020-03-05 22:51] VITALS: BP 127/76
[2020-03-05 23:10] VITALS: BP 136/94
--- NOTE | 2020-03-05 23:10 | NUR ---
A 74, admitted to 5E, under the services of ELEAZAR Sifuentes MD with a diagnosis of CHRONIC RENAL FAILURE, PNEUMONIA, DEHYDRATION. Chief complaint is FLU LIKE SYMPTOMS. Patient arrived via ambulatory from ER. Monitor applied. Initial assessment completed. Vital signs taken and recorded. ELEAZAR SIFUENTES MD notified of admission to the unit. Orders received. See assessment for past medical history, medications and allergies. Patient and/or family oriented to unit. visitation policy reviewed. Clothing/patient valuable form completed. DEEPTI GARDNER
--- NOTE | 2020-03-05 23:44 | NUR ---
DR. MEDINA NOTIFIED OF ADMISSION TO FLOOR. UNABLE TO UPDATE MED REQ D/T CLAIM HISTORY DOES NOT MATCH ER MEDICATION LIST AND PATIENT DOES NOT KNOW HOME MEDS. WILL NEED UPDATED WITH PHARMACY IN THE MORNING.
[2020-03-06] VITALS: BP 136/94
--- NOTE | 2020-03-06 06:30 | NUR ---
PATIENT SWABBED AT THIS TIME FOR COVID AND SENT TO LAB. PATIENT CONFUSED THIS AM. INCONTINENT OF BOWEL X2 THROUGH THE NIGHT. PATIENT VERY SO[place]OGON AND DIAPHORETIC. TEMP AT THIS TIME 100.6. WILL CONTINUE TO MONITOR.
[2020-03-06 08:00] VITALS: BP 149/81
--- NOTE | 2020-03-06 08:00 | NUR ---
ASSUMED CARE FROM DEVORAH BERRIOS. PT LYING IN BED. PT BEING TRANSFERRED TO [facility] AT THIS TIME.
--- NOTE | 2020-03-06 09:00 | NUR ---
IN TO SEE PT. PT VOICES NO COMPLAINTS, BREAKFAST ORDERED. VSS. CALL LIGHT IN REACH
--- NOTE | 2020-03-06 10:00 | NUR ---
IN TO ASSIST PATIENT BED ALARM IS ALARMING. PT CHANGED AT THIS TIME, REPOSITIONED IN BED. CALL LIGHT IN REACH
--- NOTE | 2020-03-06 10:28 | NUR ---
PT EATING BREAKFAST AT THIS TIME. CALL LIGHT IN REACH
--- NOTE | 2020-03-06 10:41 | NUR ---
Feather Edger in to talk to patient. Patient states lives at HOME with . There are steps in the home. Physician: ADAM [facility] Patient's level of ADLs: INDEPENDENT Patient has working utilities: YES DME: NONE Follow-up physician's appointment after d/c: PREFERS TO MAKE OWN Does patient want to access PORTAL?: NO Discharge plan PT LIVES AT HOME WITH HIS AND IS INDEPENDENT IN HIS CARE. DENIES HE WILL HAVE ANY NEEDS ON DISCHARGE. PLAN IS TO RETURN HOME WHEN MEDICALLY STABLE. WILL CONTINUE TO FOLLOW. STATES WILL TAKE HIM HOME.. DONNY PEOPLES
--- NOTE | 2020-03-06 10:46 | NUR ---
DR. MEDINA CALLED PERTAINING TO TRANSFERRING PT TO DR. GAYTAN'S [facility]ARE. STATED THAT WAS PERFECTLY FINE.
--- NOTE | 2020-03-06 10:50 | NUR ---
ED REGISTRATION NOTIFIED OF TRANSFER OF CARE
[2020-03-06] MEDS ORDERED: COUMADIN2.5 M1 PO (12:15)
[2020-03-06] MEDS ORDERED: LIPITOR40 MG PO (12:16)
[2020-03-06] MEDS ORDERED: PRILOSEC20 M1 PO (12:17)
--- NOTE | 2020-03-06 12:17 | NUR ---
MED REC UPDATED THROUGH OVER THE PHONE.
--- NOTE | 2020-03-06 12:46 | NUR ---
PATIENT RESTING IN BED. EATING A LITTLE BIT OF LUNCH. STATES THAT HE IS NOT HUNGRY. DENIES DISTRESS. SEEMS TO BE MORE ORIENTED AT THIS TIME.
--- NOTE | 2020-03-06 14:00 | NUR ---
PATIENT SET OFF BEDALARM WALKING TO THE BATHROOM. PATIENT WAS INCONTINENT OF STOOL AND URINE. BED CHANGED. PATIENT CLEANED UP. TYLENOL GIVEN PER PATIENT REQUEST FOR A HEADACHE RATING AN 8/10.
[2020-03-06 16:00] VITALS: BP 134/90
--- NOTE | 2020-03-06 16:01 | NUR ---
MESSAGE LEFT FOR DR ZAZUETA TO CALL FOR CONSULT INFORMATION.
--- NOTE | 2020-03-06 16:30 | NUR ---
AWAKE, COOPERATIVE VOICES NO CONCERNS PT IN DROPLET ISOLATION, BUT NO HEPA FILTER IS IN ROOM, MAINTAINANCE CALLED NO SOB OR COUGH, IV TO LAV WITH FLUIDS AT 100 SKIN INTACT,NO EDEMA, BED ALARM ON PT WATCHED VIA "BABY MONITOR" DR ZAZUETA ON CONSULT AWAITING [facility] SWAB RESULTS
--- NOTE | 2020-03-06 17:01 | NUR ---
SPOKE WITH DR ZAZUETA CONCERNING CONSULT NO NEW ORDERS AT PRESENT
--- NOTE | 2020-03-06 17:56 | NUR ---
PATIENT INSTRUCTED ON INCENTIVE SPIROMETRY.
[2020-03-06 20:00] VITALS: BP 128/50
--- NOTE | 2020-03-06 20:01 | NUR ---
TOOK OVER CARE OF PT. PT LYING IN BED,SLEEPING. UPON ENTERING ROOM AND INTRODUCING SELF, PT AWAKENS. PT ALERT AND PLEASANT/COOPERATIVE, SLOW TO RESPOND. PT OFFERED FOOD ON BEDSIDE TABLE BUT REFUSES AT THIS TIME. IV FLUIDS INFUSING PER ORDERS. VITALS OBTAINED AND ASSESSMENT COMPLETE REVEALING NO NEW ABNORMALITIES, ALL WNL. RESPIRATIONS UNLABORED ON ROOM AIR. PT DENIES PAIN/SOB. PT REMINDED OF USING CALL LIGHT FOR ANYTHING THAT HE MAY NEED. BED ALARM IN TACT. CALL LIGHT IN REACH.
--- NOTE | 2020-03-06 20:14 | NUR ---
24 HR chart check completed.
--- NOTE | 2020-03-06 22:08 | NUR ---
PT RESTING IN BED AT THIS TIME. EYES OPEN, ALERT ORIENTED AND ANSWERING QUESTIONS APPROPRIATELY. IV FLUIDS INFUSING PER ORDERS. PT ASSISTED TO THE BATHROOM AND RETURNED BACK TO BED. BED ALARM IN TACT. ALL NEEDS MET AT THIS TIME. BED IN LOWEST POSITION. CALL LIGHT IN REACH.
[2020-03-07] VITALS: BP 114/52
--- NOTE | 2020-03-07 00:38 | NUR ---
PT RESTING IN BED. EASILY AROUSED. VITALS OBTAINED. ALL WNL. NO S/S OF DISTRESS. PATIENT DENIES PAIN/DENIES SHORTNESS OF BREATH. RESPIRATIONS EASY AND UNLABORED ON ROOM AIR. IV FLUIDS INFUSING PER ORDERS. IV SITE PATENT. BED ALARM IN TACT. ALL SAFETY MEASURES IN PLACE. CALL LIGHT IN REACH.
[2020-03-07 07:20] LABS: BASO % 0.5 % (0.0-1.0); EOS # 0.1 10*3/uL (0.0-0.4); EOS % 0.8 % (1.0-4.0); HEMATOCRIT 40.1 % (42.0-52.0); LYMPH # 1.4 10*3/uL (1.3-4.4); LYMPH % 23.1 % (27.0-41.0); MEAN CORPUSCULAR HGB 31.2 pg (27.0-31.0); MEAN CORPUSCULAR HGB CONC 33.9 g/dl (33.0-37.0); MEAN PLATELET VOLUME 11.3 fl (9.6-12.3); MONO # 0.8 10*3/uL (0.1-1.0); MONO % 13.1 % (3.0-9.0); NEUT # 3.7 10*3/uL (2.3-7.9); PLATELET COUNT AUTOMATED 165 10*3/uL (130-400); RED BLOOD COUNT 4.36 10*6/uL (4.50-5.90); RED CELL DISTRI WIDTH 13.6 % (0-14.5)
--- NOTE | 2020-03-07 07:30 | NUR ---
PATIENT RESTING IN BED. DENIES ANY MORE DIARRHEA AT THIS TIME. DENIES N/V. CO SOME BACK PAIN. ASSESSMENT COMPLETE. VSS. POX 97% ON ROOM AIR. RESPS EASY AND REGULAR. CALL LIGHT WITHIN REACH. WILL MONITOR.
--- NOTE | 2020-03-07 07:30 | NUR ---
PT RESTING IN BED. STATES HE HAS A LITTLE BIT OF A HEADACHE. RESPS EASY AND NON LABORED. NO S/S OF DISTRESS NOTED.VSS.WHITE BOARD UPDATED. POC DISCUSSED W PT. BED ALARM ON. CALL LIGHT WITHIN REACH. PT KLUTI KAAH, PERIODS OF BREIF CONFUSION. NO FURTHER DIARRHEA AT THIS TIME.
[2020-03-07 07:44] LABS: ALBUMIN 2.8 gm/dl (3.1-4.5); ALKALINE PHOSPHATASE 75 U/L (45-117); BUN 28 mg/dl (7-24); CHLORIDE 108 mmol/L (98-107); CREATININE 1.08 mg/dL (0.70-1.30); SGOT/AST 55 IU/L (3-35); SGPT/ALT 46 U/L (12-78); TOTAL PROTEIN 7.1 gm/dL (6.4-8.2)
[2020-03-07 07:58] LABS: SODIUM 138 mmol/L (136-145)
[2020-03-07 08:00] VITALS: BP 116/60
[2020-03-07 08:01] LABS: POTASSIUM 3.4 mmol/L (3.5-5.1)
--- NOTE | 2020-03-07 08:20 | NUR ---
PT C/O ACHING 4/10 HEADACHE. MEDICATED PER ORDER. WILL MONITOR FOR RELIEF. RESPS EASY AND NON LABORED. CALL LIGHT WITHIN REACH. BED ALARM ON
--- NOTE | 2020-03-07 09:12 | NUR ---
TYLENOL APPEARS EFFECTIVE. PT RESTING COMFORTABLY.
--- NOTE | 2020-03-07 10:25 | NUR ---
Shift chart check completed.
[2020-03-07 12:00] VITALS: BP 128/74
--- NOTE | 2020-03-07 13:10 | NUR ---
MESSAGE LEFT WITH MONICA DOWNING ANSWERING SERVICE REGARDING NEW CONSULT. SHE IS COVERING FOR DR ULRICH AT THIS TIME.
--- NOTE | 2020-03-07 14:00 | NUR ---
PT SITTING UP EATING LUNCH. VOICES NO CONCERNS. RESPS EASY AND NON LABORED. NO S/S OF DISTRESS NOTED. VSS. CALL LIGHT WITHIN REACH. BODY ALARM INTACT. PT STATES HE FEELS A LITTLE BETTER. NO FURTHER EPISODES OF DIARRHEA TODAY.
[2020-03-07] MEDS ORDERED: TRAMADOL HCL50 MG PO (15:39)
--- NOTE | 2020-03-07 15:51 | NUR ---
PER DR JUSTICE IT IS OKAY FOR PT TO HAVE HIS TRAMADOL HE TAKES AT HOME LONG ID IS OKAY WITH IT. SPOKE WITH MONICA JAY WHO STATES THAT IS FINE
[2020-03-07 16:00] VITALS: BP 137/67
--- NOTE | 2020-03-07 16:20 | NUR ---
PT C/O ACHING 6/10 BACK PAIN. MEDICATED PER ORDER WILL MONITOR FOR RELIEF. VOICES NO OTHER CONCERNS AT THIS TIME. RESPS EASY AND NON LABORED. NO S/S OF DISTRESS NOTED. VSS. CALL LIGHT WITHIN REACH. BED ALARM ON.
--- NOTE | 2020-03-07 17:19 | NUR ---
PT STATES BACK PAIN IS IMPROVED.
--- NOTE | 2020-03-07 18:00 | NUR ---
PT SITTING UP IN BED EATING DINNER. VOICES NO CONCERNS. RESPS EASY AND NON LABORED. NO S/S OF DISTRESS NOTED. CALL LIGHT WITHIN REACH. BED ALARM ON.
--- NOTE | 2020-03-07 19:30 | NUR ---
PATIENT RESTING IN BED. DENIES ANYMORE DIARRHEA TODAY. DENIES N/V. CO SOME BACK PAIN. ASSESSMENT COMPLETE. POX 97% ON ROOM AIR. RESPS EASY AND REGULAR. CALL LIGHT WITHIN REACH. WILL MONITOR.
[2020-03-07 20:00] VITALS: BP 130/73
--- NOTE | 2020-03-07 20:52 | NUR ---
PATIENT REQUESTING SOMETHING FOR BACK PAIN AT THIS TIME. MEDICATED WITH PRN ULTRAM AT THIS TIME. WILL ASSESS EFFECTIVENESS. CALL LIGHT WITHIN REACH.
--- NOTE | 2020-03-07 21:52 | NUR ---
PER PATIENT ULTRAM WAS EFFECTIVE FOR HIS BACK PAIN.
--- NOTE | 2020-03-07 23:14 | NUR ---
PATIENT REQUESTING SOMETHING TO HELP HIM SLEEP. NOTIFIED AND NEW ORDERS RECEIVED. MEDICATED WITH PRN RESTORIL AT THIS TIME. WILL ASSESS EFFECTIVENESS. CALL LIGHT WITHIN REACH.
[2020-03-08] VITALS: BP 122/71
--- NOTE | 2020-03-08 01:37 | NUR ---
PATIENT SLEEPING. RESPS EASY AND REGULAR. CALL LIGHT WITHIN REACH. WILL MONITOR.
--- NOTE | 2020-03-08 01:38 | NUR ---
24 HR chart check completed.
[2020-03-08 07:14] LABS: BASO # 0.1 10*3/uL (0.0-0.1); BASO % 1.4 % (0.0-1.0); EOS # 0.2 10*3/uL (0.0-0.4); EOS % 3.5 % (1.0-4.0); HEMATOCRIT 37.2 % (42.0-52.0); LYMPH # 2.2 10*3/uL (1.3-4.4); LYMPH % 42.5 % (27.0-41.0); MEAN CELL VOLUME 91.4 fl (80.0-94.0); MEAN CORPUSCULAR HGB CONC 33.9 g/dl (33.0-37.0); MONO # 0.7 10*3/uL (0.1-1.0); MONO % 13.3 % (3.0-9.0); NEUT % 38.9 % (47.0-73.0); PLATELET COUNT AUTOMATED 166 10*3/uL (130-400); RED BLOOD COUNT 4.07 10*6/uL (4.50-5.90); RED CELL DISTRI WIDTH 13.5 % (0-14.5); WHITE BLOOD COUNT 5.1 10*3/uL (4.8-10.8)
--- NOTE | 2020-03-08 07:23 | NUR ---
Shift chart check completed.
--- NOTE | 2020-03-08 07:30 | NUR ---
PT RESTING IN BED. VOICES NO CONCERNS AT THIS TIME. RESPS EASY AND NON LABORED. NO S/S OF DISTRESS NOTED. ROOM AIR. POC DISCUSSED W PT. VSS. WHITE BOARD UPADTED. CALL LIGHT WITHIN REACH. NO FURTHER EPISODES OF DIARRHEA. NO SOB NOTED
[2020-03-08 07:44] LABS: ALBUMIN 2.5 gm/dl (3.1-4.5); ALKALINE PHOSPHATASE 75 U/L (45-117); BUN 24 mg/dl (7-24); CHLORIDE 111 mmol/L (98-107); CREATININE 1.05 mg/dL (0.70-1.30); POTASSIUM 3.6 mmol/L (3.5-5.1); SGOT/AST 52 IU/L (3-35); SGPT/ALT 57 U/L (12-78); SODIUM 142 mmol/L (136-145); TOTAL PROTEIN 6.7 gm/dL (6.4-8.2)
[2020-03-08 08:00] VITALS: BP 119/70; BP 138/94
--- NOTE | 2020-03-08 09:00 | NUR ---
case management talkes with patient, he states he will return home when discharged and denies any home needs at this time, case management will follow
--- NOTE | 2020-03-08 10:00 | NUR ---
PT ASSISTED TO BATHROOM TO SHOWER PER HIS REQUEST.
--- NOTE | 2020-03-08 10:15 | NUR ---
DR ZAZUETA INTO SEE PT
--- NOTE | 2020-03-08 10:36 | NUR ---
SPOKE W DR ZAZUETA WHO STATES PT IS STABLE TO DISCHARGE FROM HIS STANDPOINT. PT UNDERSTANDS THAT HE WILL NEED TO SELF QUARENTINE AT HOME. ALSO PT HAS REDDENED AREA ON BACK R SHOULDER AND WANTS THE DOCTOR TO LOOK AT IT. PASSED THIS ALONG TO THE PRIMARY TEAM.
[2020-03-08 12:00] VITALS: BP 123/73
--- NOTE | 2020-03-08 13:00 | NUR ---
PTS BROUGHT IN CLOTHES FOR PT. CONFUSED TO WHY PT IS NOT DISCHARGED YET. EXPLAINED THAT THERE IS NO ORDER IN AT THIS TIME.
--- NOTE | 2020-03-08 13:40 | NUR ---
PT STATING I WANT MY CLOTHES I AM LEAVING
--- NOTE | 2020-03-08 14:00 | NUR ---
Patient signed out AMA. Patient encouraged to stay and advised of possible consequences of premature discharge. Physician KINNEAR and case supervisor notified. Patient instructed what to do regarding care post-departure from the hospital; emergency phone numbers provided. Patent was accompanied by . IV DISCONTINUED. PT GIVEN INSTRUCTION REGARDING COVID-19. VERBALIZED UNDERSTANDING. HISSOM,ANDRESSA
== END 2020-03-08 14:00 | disposition left against medical advice (07) | DRG 193 ==
LOC: ED 13:55 → EDHOLD 21:38 → 4E 21:38 → 5E 22:15 → 4E 03-06 07:59
PROVIDERS: Emergency Medicine; Internal Medicine; ADMIT Internal Medicine
DX: J18.9 Pneumonia, unspecified organism (principal); N17.0 Acute kidney failure with tubular necrosis; J44.0 Chronic obstructive pulmonary disease with (acute) lower respiratory infection; I48.20 Chronic atrial fibrillation, unspecified; I48.21 Permanent atrial fibrillation; E86.0 Dehydration; R19.7 Diarrhea, unspecified; E78.5 Hyperlipidemia, unspecified; F32.9 Major depressive disorder, single episode, unspecified; K21.9 Gastro-esophageal reflux disease without esophagitis; N40.0 Benign prostatic hyperplasia without lower urinary tract symptoms; G25.0 Essential tremor; K29.50 Unspecified chronic gastritis without bleeding; J20.9 Acute bronchitis, unspecified; Z53.29 Procedure and treatment not carried out because of patient's decision for other reasons; B34.9 Viral infection, unspecified; G47.33 Obstructive sleep apnea (adult) (pediatric); I12.9 Hypertensive chronic kidney disease with stage 1 through stage 4 chronic kidney disease, or unspecified chronic kidney disease; E03.9 Hypothyroidism, unspecified; F17.210 Nicotine dependence, cigarettes, uncomplicated; E78.00 Pure hypercholesterolemia, unspecified; D72.810 Lymphocytopenia; E87.6 Hypokalemia; E83.39 Other disorders of phosphorus metabolism; K57.90 Diverticulosis of intestine, part unspecified, without perforation or abscess without bleeding; F41.1 Generalized anxiety disorder; N18.3 Chronic kidney disease, stage 3 (moderate); G89.4 Chronic pain syndrome; I25.10 Atherosclerotic heart disease of native coronary artery without angina pectoris; J44.9 Chronic obstructive pulmonary disease, unspecified; Z03.818 Encounter for observation for suspected exposure to other biological agents ruled out; Z82.49 Family history of ischemic heart disease and other diseases of the circulatory system

== ENCOUNTER 2020-03-22 15:24 | Emergency (ER) | payer OTHER, MEDICARE, BC ==
[~2020-03-22] VITALS: Ht 170.1 cm; Wt 81.6 kg
[~2020-03-22 15:24] MED LIST changes: +LIPITOR40 MG PO; +PRILOSEC20 M1 PO
[2020-03-22] MEDS ORDERED: METHOCARBAMOL500 M1 PO (17:26)
[2020-03-22] MEDS ORDERED: PREDNISONE20 M1 PO (17:26)
== END 2020-03-22 17:35 | disposition home or self-care (01) ==
LOC: ED 15:24
DX: M54.12 Radiculopathy, cervical region (principal); I10 Essential (primary) hypertension; K21.9 Gastro-esophageal reflux disease without esophagitis; E78.00 Pure hypercholesterolemia, unspecified; I48.91 Unspecified atrial fibrillation; F17.200 Nicotine dependence, unspecified, uncomplicated; Z79.899 Other long term (current) drug therapy

== ENCOUNTER 2020-08-16 16:53 | Emergency (ER) | payer MEDICARE, BC ==
[~2020-08-16] VITALS: Ht 170.1 cm; Wt 86.2 kg
[~2020-08-16 16:53] MED LIST changes: +METHOCARBAMOL500 M1 PO
== END 2020-08-16 19:09 | disposition left against medical advice (07) ==
LOC: ED 16:53
DX: R05 Cough (principal); Z79.899 Other long term (current) drug therapy; Z79.01 Long term (current) use of anticoagulants; Z87.891 Personal history of nicotine dependence

== ENCOUNTER → 2020-08-25 | Outpatient (CLI) | payer MEDICARE, BC ==
[~2020-08-25] MED LIST changes: +ATORVASTATIN CA80 M1 PO; +BUSPIRONE HCL10 MG PO; +FEROSUL325 MG PO; +MIRALAX POWDER17 G1 PO; +VITAMIN C500 M4 PO
== END | disposition home or self-care (01) ==
LOC: COVID19 11:17
PROVIDERS: ATTEND Internal Medicine
DX: Z20.828 Contact with and (suspected) exposure to other viral communicable diseases (principal)

== ENCOUNTER 2020-09-05 06:59 | Emergency (ER) | payer MEDICARE, BC ==
[~2020-09-05] VITALS: Ht 170.1 cm; Wt 86.2 kg
[~2020-09-05 06:59] MED LIST changes: -ATORVASTATIN CA80 M1 PO; -BUSPIRONE HCL10 MG PO; -FEROSUL325 MG PO; -MIRALAX POWDER17 G1 PO; -VITAMIN C500 M4 PO
[2020-09-05] MEDS ORDERED: ATORVASTATIN CA80 M1 PO (07:06)
[2020-09-05] MEDS ORDERED: FEROSUL325 MG PO (07:07)
[2020-09-05] MEDS ORDERED: VITAMIN C500 M4 PO (07:08)
[2020-09-05] MEDS ORDERED: BUSPIRONE HCL10 MG PO (07:09)
[2020-09-05 08:19] LABS: BILIRUBIN Negative (Negative); BLOOD Negative (Negative); CLARITY Clear (Clear); COLOR Yellow (Yellow); GLUCOSE Negative (Negative); KETONE Trace (Negative); LEUKO ESTERASE Negative (Negative); NITRITE Negative (Negative); PH 5.5 (4.5-8.0); UROBILINOGEN 0.2 E.U./dl (0.0-1.0)
[2020-09-05 08:22] LABS: BASO % 0.5 % (0.0-1.0); EOS # 0.1 10*3/uL (0.0-0.4); EOS % 1.3 % (1.0-4.0); HEMATOCRIT 44.4 % (42.0-52.0); LYMPH # 2.3 10*3/uL (1.3-4.4); LYMPH % 26.5 % (27.0-41.0); MEAN CELL VOLUME 94.1 fl (80.0-94.0); MEAN CORPUSCULAR HGB 32.2 pg (27.0-31.0); MEAN CORPUSCULAR HGB CONC 34.2 g/dl (33.0-37.0); MONO # 0.7 10*3/uL (0.1-1.0); MONO % 7.4 % (3.0-9.0); NEUT # 5.6 10*3/uL (2.3-7.9); NEUT % 63.8 % (47.0-73.0); PLATELET COUNT AUTOMATED 266 10*3/uL (130-400); RED BLOOD COUNT 4.72 10*6/uL (4.50-5.90); RED CELL DISTRI WIDTH 12.8 % (0-14.5); WHITE BLOOD COUNT 8.8 10*3/uL (4.8-10.8)
[2020-09-05] MEDS ORDERED: ZOFRAN4 MG PO (08:24)
[2020-09-05 08:41] LABS: MUCOUS TRACE
[2020-09-05 08:55] LABS: ALKALINE PHOSPHATASE 87 U/L (45-117); BUN 16 mg/dl (7-24); CHLORIDE 106 mmol/L (98-107); CREATININE 1.31 mg/dL (0.70-1.30); POTASSIUM 4.1 mmol/L (3.5-5.1); SGOT/AST 32 IU/L (3-35); SGPT/ALT 38 U/L (12-78); SODIUM 139 mmol/L (136-145); TOTAL PROTEIN 8.3 gm/dL (6.4-8.2)
== END 2020-09-05 09:25 | disposition home or self-care (01) ==
LOC: ED 06:59
PROVIDERS: Emergency Medicine
DX: R11.0 Nausea (principal); I48.91 Unspecified atrial fibrillation; J44.9 Chronic obstructive pulmonary disease, unspecified; K21.9 Gastro-esophageal reflux disease without esophagitis; E78.5 Hyperlipidemia, unspecified; E03.9 Hypothyroidism, unspecified; F17.200 Nicotine dependence, unspecified, uncomplicated; Z79.899 Other long term (current) drug therapy

== ENCOUNTER → 2020-09-06 | Outpatient (CLI) | payer MEDICARE, BC ==
[~2020-09-06] MED LIST changes: +ATORVASTATIN CA80 M1 PO; +BUSPIRONE HCL10 MG PO; +FEROSUL325 MG PO; +MIRALAX POWDER17 G1 PO; +VITAMIN C500 M4 PO
== END | disposition home or self-care (01) ==
LOC: COVID19 12:50
PROVIDERS: ATTEND Nurse Practitioner Adult Health
DX: Z20.828 Contact with and (suspected) exposure to other viral communicable diseases (principal)

== ENCOUNTER 2020-09-27 05:01 | Emergency (ER) | payer MEDICARE, BC ==
[~2020-09-27] VITALS: Wt 83.5 kg
[~2020-09-27 05:01] MED LIST changes: -MIRALAX POWDER17 G1 PO
[2020-09-27] MEDS ORDERED: MIRALAX POWDER17 G1 PO (05:57)
== END 2020-09-27 06:14 | disposition home or self-care (01) ==
LOC: ED 05:01
DX: G89.29 Other chronic pain (principal); M54.9 Dorsalgia, unspecified; K59.00 Constipation, unspecified; I10 Essential (primary) hypertension; F32.9 Major depressive disorder, single episode, unspecified; K21.9 Gastro-esophageal reflux disease without esophagitis; F41.9 Anxiety disorder, unspecified; E78.00 Pure hypercholesterolemia, unspecified; I48.91 Unspecified atrial fibrillation; F17.200 Nicotine dependence, unspecified, uncomplicated; Z79.899 Other long term (current) drug therapy; Z79.01 Long term (current) use of anticoagulants; Z98.890 Other specified postprocedural states

== ENCOUNTER 2020-09-27 12:47 | Emergency (ER) | payer MEDICARE, BC ==
[~2020-09-27 12:47] MED LIST changes: +MIRALAX POWDER17 G1 PO
[2020-09-27 13:15] LABS: BASO % 0.2 % (0.0-1.0); EOS % 0.2 % (1.0-4.0); HEMATOCRIT 39.3 % (42.0-52.0); LYMPH # 0.6 10*3/uL (1.3-4.4); LYMPH % 4.9 % (27.0-41.0); MEAN CELL VOLUME 93.3 fl (80.0-94.0); MEAN CORPUSCULAR HGB 32.1 pg (27.0-31.0); MEAN CORPUSCULAR HGB CONC 34.4 g/dl (33.0-37.0); MEAN PLATELET VOLUME 10.2 fl (9.6-12.3); MONO # 0.7 10*3/uL (0.1-1.0); MONO % 5.1 % (3.0-9.0); NEUT # 11.3 10*3/uL (2.3-7.9); NEUT % 89.1 % (47.0-73.0); PLATELET COUNT AUTOMATED 273 10*3/uL (130-400); RED BLOOD COUNT 4.21 10*6/uL (4.50-5.90); RED CELL DISTRI WIDTH 12.5 % (0-14.5); WHITE BLOOD COUNT 12.7 10*3/uL (4.8-10.8)
[2020-09-27 13:23] LABS: ACT PARTIAL THROMBO TIME 31.4 SECONDS (20.0-32.1); INTERNATIONAL NORM RATIO 1.8 (2.0-3.5)
[2020-09-27 13:27] LABS: ALBUMIN 3.2 gm/dl (3.1-4.5); ALKALINE PHOSPHATASE 74 U/L (45-117); BUN 22 mg/dl (7-24); CHLORIDE 105 mmol/L (98-107); CREATININE 1.27 mg/dL (0.70-1.30); LIPASE 195 U/L (73-393); SGOT/AST 18 IU/L (3-35); SGPT/ALT 29 U/L (12-78); SODIUM 138 mmol/L (136-145); TOTAL PROTEIN 7.3 gm/dL (6.4-8.2)
[2020-09-27 13:28] LABS: TROPONIN I < 0.015 ng/ml (<0.045)
[2020-09-27 13:43] LABS: DIGOXIN 1.28 ng/ml (0.8-2.0)
== END 2020-09-27 14:25 | disposition left against medical advice (07) ==
LOC: ED 12:47
PROVIDERS: Emergency Medicine
DX: R68.83 Chills (without fever) (principal); I10 Essential (primary) hypertension; F32.9 Major depressive disorder, single episode, unspecified; K21.9 Gastro-esophageal reflux disease without esophagitis; F41.9 Anxiety disorder, unspecified; E78.00 Pure hypercholesterolemia, unspecified; I48.91 Unspecified atrial fibrillation; F17.200 Nicotine dependence, unspecified, uncomplicated; Z79.899 Other long term (current) drug therapy; Z79.01 Long term (current) use of anticoagulants; Z98.890 Other specified postprocedural states; Z53.29 Procedure and treatment not carried out because of patient's decision for other reasons

== ENCOUNTER 2020-10-22 15:00 | Emergency (ER) | payer MEDICARE, BC ==
[~2020-10-22] VITALS: Ht 170.1 cm; Wt 79.4 kg
== END 2020-10-22 15:37 | disposition left against medical advice (07) ==
LOC: ED 15:00
DX: G89.29 Other chronic pain (principal); M54.9 Dorsalgia, unspecified; Z53.21 Procedure and treatment not carried out due to patient leaving prior to being seen by health care provider

== ENCOUNTER 2020-11-24 15:17 | Emergency (ER) | payer OTHER ==
[~2020-11-24] VITALS: Ht 170.1 cm; Wt 74.8 kg
[2020-11-24 16:04] LABS: BASO # 0.1 10*3/uL (0.0-0.1); BASO % 0.6 % (0.0-1.0); EOS # 0.1 10*3/uL (0.0-0.4); EOS % 1.3 % (1.0-4.0); HEMATOCRIT 41.3 % (42.0-52.0); LYMPH # 2.2 10*3/uL (1.3-4.4); LYMPH % 26.9 % (27.0-41.0); MEAN CELL VOLUME 92.2 fl (80.0-94.0); MEAN CORPUSCULAR HGB 31.5 pg (27.0-31.0); MEAN CORPUSCULAR HGB CONC 34.1 g/dl (33.0-37.0); MEAN PLATELET VOLUME 10.3 fl (9.6-12.3); MONO # 0.7 10*3/uL (0.1-1.0); MONO % 8.7 % (3.0-9.0); NEUT # 5.1 10*3/uL (2.3-7.9); NEUT % 61.9 % (47.0-73.0); PLATELET COUNT AUTOMATED 386 10*3/uL (130-400); RED BLOOD COUNT 4.48 10*6/uL (4.50-5.90); RED CELL DISTRI WIDTH 12.6 % (0-14.5); WHITE BLOOD COUNT 8.3 10*3/uL (4.8-10.8)
[2020-11-24 16:18] LABS: ALKALINE PHOSPHATASE 101 U/L (45-117); BUN 17 mg/dl (7-24); CHLORIDE 107 mmol/L (98-107); CREATININE 1.08 mg/dL (0.70-1.30); LIPASE 134 U/L (73-393); SGOT/AST 11 IU/L (3-35); SGPT/ALT 19 U/L (12-78); SODIUM 139 mmol/L (136-145); TOTAL PROTEIN 7.2 gm/dL (6.4-8.2)
[2020-11-24] MEDS ORDERED: MEDROL DOSEPAK4 MG PO (18:11)
[2020-11-24] MEDS ORDERED: HYDROCODONE-AC1 EAC1 PO (18:11)
== END 2020-11-24 18:16 | disposition home or self-care (01) ==
LOC: ED 15:17
PROVIDERS: Physician Assistant
DX: M54.5 Low back pain (principal); G89.29 Other chronic pain; I10 Essential (primary) hypertension; F32.9 Major depressive disorder, single episode, unspecified; K21.9 Gastro-esophageal reflux disease without esophagitis; F41.9 Anxiety disorder, unspecified; E78.00 Pure hypercholesterolemia, unspecified; F17.200 Nicotine dependence, unspecified, uncomplicated; Z79.01 Long term (current) use of anticoagulants; Z79.899 Other long term (current) drug therapy; Z98.890 Other specified postprocedural states

== ENCOUNTER 2021-01-16 14:17 | Emergency (ER) | payer MEDICARE, BC ==
[~2021-01-16] VITALS: Wt 72.6 kg
[~2021-01-16 14:17] MED LIST changes: +HYDROCODONE-AC1 EAC1 PO
== END 2021-01-16 14:29 | disposition left against medical advice (07) ==
LOC: ED 14:17
DX: M54.5 Low back pain (principal); Z53.21 Procedure and treatment not carried out due to patient leaving prior to being seen by health care provider

== ENCOUNTER → 2021-03-15 | Outpatient (CLI) | payer MEDICARE, BC | END | disposition home or self-care (01) | LOC: CT 02-28 10:00 | PROVIDERS: ATTEND Internal Medicine Critical Care Medicine | DX: J98.4 Other disorders of lung (principal); I25.10 Atherosclerotic heart disease of native coronary artery without angina pectoris; M48.54XA Collapsed vertebra, not elsewhere classified, thoracic region, initial encounter for fracture ==

== ENCOUNTER → 2021-04-28 | Outpatient (CLI) | payer OTHER ==
[2021-04-28 08:46] LABS: HEMATOCRIT 42.2 % (42.0-52.0); MEAN CELL VOLUME 91.1 fl (80.0-94.0); MEAN CORPUSCULAR HGB 30.9 pg (27.0-31.0); MEAN CORPUSCULAR HGB CONC 33.9 g/dl (33.0-37.0); MEAN PLATELET VOLUME 10.2 fl (9.6-12.3); RED BLOOD COUNT 4.63 10*6/uL (4.50-5.90); WHITE BLOOD COUNT 14.3 10*3/uL (4.8-10.8)
[2021-04-28 09:18] LABS: ALKALINE PHOSPHATASE 84 U/L (45-117); BUN 23 mg/dl (7-24); CHLORIDE 106 mmol/L (98-107); CHOLESTEROL 146 mg/dL (<200); CREATININE 1.07 mg/dL (0.70-1.30); FREE T4 1.56 ng/dl (0.76-1.46); SGOT/AST 14 IU/L (3-35); SGPT/ALT 22 U/L (12-78); SODIUM 138 mmol/L (136-145)
[2021-04-28 09:43] LABS: VITAMIN D, 25-HYDROXY 82.4 ng/mL (30-100)
[2021-04-28 10:17] LABS: LDL CHOLESTEROL 85 mg/dL (9-159); TRIGLYCERIDES 118 mg/dl (<150)
[2021-04-29 13:06] LABS: PROSTATE SPECIFIC AG FREE 0.29 ng/mL; PROSTATE SPECIFIC AG, SERUM 1.2 ng/mL (0.0-4.0)
== END | disposition home or self-care (01) ==
LOC: LAB 08:19
PROVIDERS: ATTEND Family Medicine
DX: M51.36 Other intervertebral disc degeneration, lumbar region (principal); M48.061 Spinal stenosis, lumbar region without neurogenic claudication; I48.91 Unspecified atrial fibrillation; R53.83 Other fatigue; M54.5 Low back pain; E78.00 Pure hypercholesterolemia, unspecified; E55.9 Vitamin D deficiency, unspecified; N40.1 Benign prostatic hyperplasia with lower urinary tract symptoms; K40.91 Unilateral inguinal hernia, without obstruction or gangrene, recurrent; M43.8X6 Other specified deforming dorsopathies, lumbar region; M25.78 Osteophyte, vertebrae; I25.10 Atherosclerotic heart disease of native coronary artery without angina pectoris

== ENCOUNTER → 2021-05-04 | Outpatient (CLI) | payer OTHER ==
[2021-05-04 14:26] LABS: BASO # 0.1 10*3/uL (0.0-0.1); BASO % 0.4 % (0.0-1.0); EOS # 0.1 10*3/uL (0.0-0.4); EOS % 0.7 % (1.0-4.0); HEMATOCRIT 39.8 % (42.0-52.0); LYMPH # 2.6 10*3/uL (1.3-4.4); LYMPH % 19.3 % (27.0-41.0); MEAN CELL VOLUME 91.5 fl (80.0-94.0); MEAN CORPUSCULAR HGB 31.3 pg (27.0-31.0); MEAN CORPUSCULAR HGB CONC 34.2 g/dl (33.0-37.0); MEAN PLATELET VOLUME 10.5 fl (9.6-12.3); MONO # 0.6 10*3/uL (0.1-1.0); MONO % 4.4 % (3.0-9.0); NEUT # 10.2 10*3/uL (2.3-7.9); NEUT % 74.6 % (47.0-73.0); PLATELET COUNT AUTOMATED 383 10*3/uL (130-400); RED BLOOD COUNT 4.35 10*6/uL (4.50-5.90); RED CELL DISTRI WIDTH 12.8 % (0-14.5); WHITE BLOOD COUNT 13.7 10*3/uL (4.8-10.8)
[2021-05-05 08:07] LABS: HEP B CORE AB, IGM Negative (Negative); HEPATITIS B SURFACE AG Negative (Negative); HEPATITIS C VIRUS ANTIBODY <0.1 s/co (0.0-0.9)
== END | disposition home or self-care (01) ==
LOC: LAB 13:59
PROVIDERS: ATTEND Family Medicine
DX: J44.9 Chronic obstructive pulmonary disease, unspecified (principal); R53.83 Other fatigue; D72.829 Elevated white blood cell count, unspecified; Z72.0 Tobacco use; Z13.818 Encounter for screening for other digestive system disorders

== ENCOUNTER → 2021-07-08 | Outpatient (CLI) | payer OTHER | LOC: MRI 09:43 | PROVIDERS: ATTEND Anesthesiology | DX: S22.088A Other fracture of T11-T12 vertebra, initial encounter for closed fracture (principal); M51.26 Other intervertebral disc displacement, lumbar region; M48.061 Spinal stenosis, lumbar region without neurogenic claudication; X58.XXXA Exposure to other specified factors, initial encounter; Y93.89 Activity, other specified; Y92.89 Other specified places as the place of occurrence of the external cause; Y99.8 Other external cause status ==

== ENCOUNTER → 2021-08-31 | Outpatient (CLI) | payer OTHER | END | disposition home or self-care (01) | LOC: NM 08-24 10:00 | PROVIDERS: ATTEND Family Medicine | DX: S22.080A Wedge compression fracture of T11-T12 vertebra, initial encounter for closed fracture (principal); D72.829 Elevated white blood cell count, unspecified; X58.XXXA Exposure to other specified factors, initial encounter; Y93.89 Activity, other specified; Y92.89 Other specified places as the place of occurrence of the external cause; Y99.8 Other external cause status ==

== ENCOUNTER → 2022-05-24 | Outpatient (CLI) | payer MEDICARE ==
[2022-05-24 14:43] LABS: HEMATOCRIT 41.1 % (42.0-52.0); MEAN CELL VOLUME 92.4 fl (80.0-94.0); MEAN CORPUSCULAR HGB 31.5 pg (27.0-31.0); MEAN CORPUSCULAR HGB CONC 34.1 g/dl (33.0-37.0); MEAN PLATELET VOLUME 10.2 fl (9.6-12.3); RED BLOOD COUNT 4.45 10*6/uL (4.50-5.90); RED CELL DISTRI WIDTH 12.8 % (0-14.5); WHITE BLOOD COUNT 9.2 10*3/uL (4.8-10.8)
[2022-05-24 14:59] LABS: ALKALINE PHOSPHATASE 88 U/L (45-117); BUN 22 mg/dl (7-24); CHLORIDE 110 mmol/L (98-107); CHOLESTEROL 137 mg/dL (<200); CREATININE 1.22 mg/dL (0.70-1.30); LDL CHOLESTEROL 56 mg/dL (9-159); POTASSIUM 4.6 mmol/L (3.5-5.1); SGOT/AST 16 IU/L (3-35); SGPT/ALT 22 U/L (12-78); SODIUM 141 mmol/L (136-145); TOTAL PROTEIN 7.6 gm/dL (6.4-8.2); TRIGLYCERIDES 237 mg/dl (<150)
[2022-05-24 15:46] LABS: VITAMIN D, 25-HYDROXY 44.7 ng/mL (30-100)
== END | disposition home or self-care (01) ==
LOC: LAB 14:20
PROVIDERS: ATTEND Family Medicine
DX: E55.9 Vitamin D deficiency, unspecified (principal); R53.83 Other fatigue; I48.91 Unspecified atrial fibrillation; R07.81 Pleurodynia

== ENCOUNTER 2023-01-16 09:03 | Emergency (ER) | payer MEDICARE ==
[~2023-01-16] VITALS: Ht 170.1 cm; Wt 80.3 kg
[2023-01-16 09:29] LABS: BASO # 0.1 10*3/uL (0.0-0.1); BASO % 0.7 % (0.0-1.0); EOS # 0.2 10*3/uL (0.0-0.4); EOS % 1.7 % (1.0-4.0); HEMATOCRIT 40.1 % (42.0-52.0); LYMPH # 4.9 10*3/uL (1.3-4.4); LYMPH % 40.3 % (27.0-41.0); MEAN CELL VOLUME 92.8 fl (80.0-94.0); MEAN CORPUSCULAR HGB 31.5 pg (27.0-31.0); MEAN CORPUSCULAR HGB CONC 33.9 g/dl (33.0-37.0); MEAN PLATELET VOLUME 10.4 fl (9.6-12.3); MONO # 0.8 10*3/uL (0.1-1.0); MONO % 6.5 % (3.0-9.0); NEUT # 6.1 10*3/uL (2.3-7.9); NEUT % 50.5 % (47.0-73.0); PLATELET COUNT AUTOMATED 260 10*3/uL (130-400); RED BLOOD COUNT 4.32 10*6/uL (4.50-5.90); RED CELL DISTRI WIDTH 12.4 % (0-14.5); WHITE BLOOD COUNT 12.1 10*3/uL (4.8-10.8)
[2023-01-16 09:43] LABS: ACT PARTIAL THROMBO TIME 28.5 SECONDS (20.0-32.1)
[2023-01-16 09:57] LABS: ALKALINE PHOSPHATASE 84 U/L (46-116); BUN 13 mg/dl (9-23); CHLORIDE 109 mmol/L (98-107); POTASSIUM 4.1 mmol/L (3.4-5.1); SGPT/ALT 15 U/L (10-49); TOTAL PROTEIN 6.7 gm/dL (6.0-8.0)
== END 2023-01-16 09:53 | disposition short-term general hospital (02) ==
LOC: ED 09:03
PROVIDERS: Emergency Medicine
DX: I21.9 Acute myocardial infarction, unspecified (principal); I10 Essential (primary) hypertension; F32.A Depression, unspecified; K21.9 Gastro-esophageal reflux disease without esophagitis; F41.9 Anxiety disorder, unspecified; I48.91 Unspecified atrial fibrillation; E78.00 Pure hypercholesterolemia, unspecified; Z98.890 Other specified postprocedural states; F17.200 Nicotine dependence, unspecified, uncomplicated

== ENCOUNTER → 2023-10-10 | Outpatient (CLI) | payer MEDICARE ==
[2023-10-10 08:03] LABS: HEMATOCRIT 44.9 % (42.0-52.0); MEAN CELL VOLUME 93.5 fl (80.0-94.0); MEAN CORPUSCULAR HGB 30.4 pg (27.0-31.0); MEAN CORPUSCULAR HGB CONC 32.5 g/dl (33.0-37.0); MEAN PLATELET VOLUME 10.9 fl (9.6-12.3); RED BLOOD COUNT 4.8 10*6/uL (4.50-5.90); RED CELL DISTRI WIDTH 12.8 % (0-14.5); WHITE BLOOD COUNT 7.3 10*3/uL (4.8-10.8)
[2023-10-10 09:00] LABS: ALKALINE PHOSPHATASE 105 U/L (46-116); BUN 15 mg/dl (9-23); CHLORIDE 108 mmol/L (98-107); CHOLESTEROL 134 mg/dL (<200); CPK 72 U/L (34-171); LDL CHOLESTEROL 74 mg/dL (9-159); POTASSIUM 4.7 mmol/L (3.4-5.1); SGPT/ALT 17 U/L (5-49); TOTAL PROTEIN 7.6 gm/dL (6.0-8.0); TRIGLYCERIDES 132 mg/dl (<150)
[2023-10-10 09:01] LABS: VITAMIN D, 25-HYDROXY 80.4 ng/mL (30-100)
== END | disposition home or self-care (01) ==
LOC: LAB 07:45
PROVIDERS: ATTEND Family Medicine
DX: Z12.5 Encounter for screening for malignant neoplasm of prostate (principal); R06.02 Shortness of breath; I11.9 Hypertensive heart disease without heart failure; I25.10 Atherosclerotic heart disease of native coronary artery without angina pectoris; R53.83 Other fatigue; E78.00 Pure hypercholesterolemia, unspecified; E55.9 Vitamin D deficiency, unspecified

== ENCOUNTER → 2024-01-11 | Outpatient (CLI) | payer MEDICARE ==
[2024-01-11 14:28] LABS: HEMATOCRIT 41.6 % (42.0-52.0); MEAN CELL VOLUME 92.2 fl (80.0-94.0); MEAN CORPUSCULAR HGB 31.7 pg (27.0-31.0); MEAN CORPUSCULAR HGB CONC 34.4 g/dl (33.0-37.0); MEAN PLATELET VOLUME 11.2 fl (9.6-12.3); RED BLOOD COUNT 4.51 10*6/uL (4.50-5.90); RED CELL DISTRI WIDTH 13.5 % (0-14.5); WHITE BLOOD COUNT 7.3 10*3/uL (4.8-10.8)
[2024-01-11 14:44] LABS: ALKALINE PHOSPHATASE 86 U/L (46-116); BUN 15 mg/dl (9-23); CHLORIDE 107 mmol/L (98-107); CHOLESTEROL 134 mg/dL (<200); LDL CHOLESTEROL 65 mg/dL (9-159); POTASSIUM 3.8 mmol/L (3.4-5.1); SGPT/ALT 23 U/L (5-49); TOTAL PROTEIN 7.4 gm/dL (6.0-8.0); TRIGLYCERIDES 163 mg/dl (<150)
[2024-01-11 14:48] LABS: VITAMIN D, 25-HYDROXY 74.5 ng/mL (30-100)
== END | disposition home or self-care (01) ==
LOC: LAB 13:58
PROVIDERS: ATTEND Family Medicine
DX: E78.00 Pure hypercholesterolemia, unspecified (principal); R31.9 Hematuria, unspecified; E55.9 Vitamin D deficiency, unspecified; E74.9 Disorder of carbohydrate metabolism, unspecified; N40.0 Benign prostatic hyperplasia without lower urinary tract symptoms; N20.0 Calculus of kidney

== ENCOUNTER 2024-02-28 13:10 | Emergency (ER) | payer MEDICARE ==
[~2024-02-28] VITALS: Wt 84.4 kg
[2024-02-28] MEDS ORDERED: SODIUM CHLORIDE 0.9% 500 ML IV ONE (13:30)
[2024-02-28 13:51] LABS: BASO % 0.3 % (0.0-1.0); HEMATOCRIT 46.1 % (42.0-52.0); LYMPH # 2.1 10*3/uL (1.3-4.4); LYMPH % 18.9 % (27.0-41.0); MEAN CELL VOLUME 92.2 fl (80.0-94.0); MEAN CORPUSCULAR HGB CONC 34.7 g/dl (33.0-37.0); MEAN PLATELET VOLUME 10.9 fl (9.6-12.3); MONO # 0.7 10*3/uL (0.1-1.0); MONO % 6.5 % (3.0-9.0); NEUT # 8.3 10*3/uL (2.3-7.9); PLATELET COUNT AUTOMATED 233 10*3/uL (130-400); RED CELL DISTRI WIDTH 12.9 % (0-14.5); WHITE BLOOD COUNT 11.3 10*3/uL (4.8-10.8)
[2024-02-28 14:12] LABS: ALKALINE PHOSPHATASE 98 U/L (46-116); BUN 22 mg/dl (9-23); CHLORIDE 107 mmol/L (98-107); POTASSIUM 3.9 mmol/L (3.4-5.1); SGPT/ALT 21 U/L (5-49); TOTAL PROTEIN 7.9 gm/dL (6.0-8.0)
[2024-03-02] MEDS ORDERED: ELIQUIS5 M1 PO (15:31)
[2024-03-02] MEDS ORDERED: LYRICA300 MG PO (15:32)
[2024-03-02] MEDS ORDERED: LIPITOR80 MG PO (15:32)
[2024-03-02] MEDS ORDERED: MELATONIN3 MG PO (15:33)
[2024-03-02] MEDS ORDERED: METOPROLOL SUCC25 M2 PO (15:34)
[2024-03-02] MEDS ORDERED: CEPHALEXIN500 M1 PO (17:14)
== END 2024-02-28 16:29 | disposition home or self-care (01) ==
LOC: ED 13:10
PROVIDERS: Emergency Medicine
DX: R53.1 Weakness (principal); R41.0 Disorientation, unspecified; I10 Essential (primary) hypertension; F32.A Depression, unspecified; K21.9 Gastro-esophageal reflux disease without esophagitis; F41.9 Anxiety disorder, unspecified; E78.00 Pure hypercholesterolemia, unspecified; I48.91 Unspecified atrial fibrillation; F17.200 Nicotine dependence, unspecified, uncomplicated; Z98.890 Other specified postprocedural states

== ENCOUNTER → 2024-07-01 | Outpatient (CLI) | payer MEDICARE ==
[~2024-07-01] MED LIST changes: +CEPHALEXIN500 M1 PO; +ELIQUIS5 M1 PO; +LIPITOR80 MG PO; +LYRICA300 MG PO; +MELATONIN3 MG PO; +METOPROLOL SUCC25 M2 PO
[2024-07-01 09:33] LABS: HEMATOCRIT 43.5 % (42.0-52.0); MEAN CELL VOLUME 91.8 fl (80.0-94.0); MEAN CORPUSCULAR HGB 31.9 pg (27.0-31.0); MEAN CORPUSCULAR HGB CONC 34.7 g/dl (33.0-37.0); MEAN PLATELET VOLUME 11.1 fl (9.6-12.3); RED BLOOD COUNT 4.74 10*6/uL (4.50-5.90); RED CELL DISTRI WIDTH 12.8 % (0-14.5); WHITE BLOOD COUNT 10.4 10*3/uL (4.8-10.8)
[2024-07-01 10:08] LABS: POTASSIUM 4.3 mmol/L (3.4-5.1); TOTAL PROTEIN 7.5 gm/dL (6.0-8.0)
[2024-07-01 10:12] LABS: VITAMIN D, 25-HYDROXY 80.8 ng/mL (30-100)
== END | disposition home or self-care (01) ==
LOC: LAB 09:09
PROVIDERS: ATTEND Family Medicine
DX: E55.9 Vitamin D deficiency, unspecified (principal); E78.00 Pure hypercholesterolemia, unspecified; R53.83 Other fatigue; N39.0 Urinary tract infection, site not specified; R31.9 Hematuria, unspecified

== ENCOUNTER → 2024-07-24 | Outpatient (CLI) | payer MEDICARE | END | disposition home or self-care (01) | LOC: RAD 10:37 | PROVIDERS: ATTEND Family Medicine | DX: R31.9 Hematuria, unspecified (principal); K59.00 Constipation, unspecified; R10.9 Unspecified abdominal pain; N39.0 Urinary tract infection, site not specified ==

== ENCOUNTER → 2024-08-26 | Outpatient (CLI) | payer OTHER | END | disposition home or self-care (01) | LOC: US 00:59 | PROVIDERS: ATTEND Family Medicine | DX: C64.9 Malignant neoplasm of unspecified kidney, except renal pelvis (principal); N30.91 Cystitis, unspecified with hematuria ==

== ENCOUNTER → 2024-11-11 | Outpatient (CLI) | payer MEDICARE | END | disposition home or self-care (01) | LOC: MRI 03:38 | PROVIDERS: ATTEND Family Medicine | DX: N28.89 Other specified disorders of kidney and ureter (principal) ==